=== PATIENT | female | born 1950 | race Caucasian/White ===

== ENCOUNTER 2017-11-12 05:18 | Inpatient (IN) | payer MEDICARE, OTHER ==
[2017-11-12] MEDS: MORPHINE SULFATE 2 MG/ML DISP.SYRIN. IV (06:28)
[2017-11-12 06:34] LABS: ADD MAN DIFF? NO
[2017-11-12 06:37] LABS: BASO % 1 % (0-3); EOS # 0.3 x10^3/uL (0.0-0.7); EOS % 5 % (0-3); HEMOGLOBIN 11.3 g/dL (12.0-15.5); LYMPH # 2.1 x10^3/uL (1.0-4.8); LYMPH % 38 % (24-48); MEAN CORPUSCULAR HEMOGLOBIN 29 pg (25-35); MEAN CORPUSCULAR HGB CONC 34 g/dL (31-37); MEAN CORPUSCULAR VOLUME 85 fL (79-100); MONO # 0.4 x10^3/uL (0.0-1.1); MONO % 8 % (0-9); NEUT # 2.8 x10^3uL (1.8-7.7); NEUT % 49 % (31-73); PLATELET COUNT 239 x10^3/uL (140-400); RED BLOOD COUNT 3.89 x10^6/uL (3.50-5.40); RED CELL DISTRIBUTION WIDTH 16.2 % (11.5-14.5); WHITE BLOOD COUNT 5.6 x10^3/uL (4.0-11.0)
[2017-11-12 06:50] LABS: ANION GAP 12 (6-14); BLOOD UREA NITROGEN 18 mg/dL (7-20); BUN/CREATININE RATIO 23 (6-20); CALCIUM 9.1 mg/dL (8.5-10.1); CARBON DIOXIDE 21 mmol/L (21-32); CHLORIDE 104 mmol/L (98-107); CREATININE 0.8 mg/dL (0.6-1.0); GFR 71.3; GLUCOSE 107 mg/dL (70-99); SODIUM 137 mmol/L (136-145)
[2017-11-12 06:55] LABS: ALBUMIN 3.5 g/dL (3.4-5.0); ALBUMIN/GLOBULIN RATIO 0.9 (1.0-1.7); ALK PHOS 115 U/L (46-116); ALT (SGPT) 21 U/L (14-59); AST (SGOT) 21 U/L (15-37); TOTAL BILIRUBIN 0.3 mg/dL (0.2-1.0); TOTAL PROTEIN 7.2 g/dL (6.4-8.2)
[2017-11-12 06:59] LABS: TROPONINI < 0.017 ng/mL (0.000-0.055)
[2017-11-12 07:57] LABS: INR 1.9 (0.8-1.1); PARTIAL THROMBOPLASTIN TIME 39 SEC (24-38); PROTHROMBIN TIME PATIENT 20.7 SEC (11.7-14.0)
[2017-11-12] MEDS ORDERED: fentaNYL PF VIAL 100 MCG/2 ML VIAL IV (08:00)
[2017-11-12 08:08] LABS: D-DIMER 0.28 ug/mlFEU (0.00-0.50)
[2017-11-12] MEDS: ASPIRIN CHEWABLE 81 MG TABLET. PO (08:19)
[2017-11-12] MEDS: diphenhydrAMINE 50 MG/ML VIAL IVP (08:19)
[2017-11-12] MEDS: ACETAMINOPHEN 500 MG TABLET PO (08:23)
[2017-11-12] MEDS ORDERED: ACETAMINOPHEN 325 MG TABLET. PO (12:00)
[2017-11-12 12:19] LABS: TROPONINI < 0.017 ng/mL (0.000-0.055)
[2017-11-12] MEDS ORDERED: NITROGLYCERIN SUBLINGUAL 0.4 MG BOTTLE OF 25. SL (14:00)
[2017-11-12] MEDS ORDERED: NON FORMULARY ITEM (Gabapentin 300 MG) PO (14:00)
[2017-11-12] MEDS ORDERED: NON FORMULARY ITEM (Cranberry Extract (Cranberry) 425 MG) PO (14:00)
[2017-11-12] MEDS ORDERED: IPRATRPIUM/ALBUTEROL 0.5/2.5MG 3 ML NEBU. NEB (14:00)
[2017-11-12] MEDS ORDERED: GABAPENTIN 100 MG CAPSULE. PO (14:00)
[2017-11-12] MEDS ORDERED: NON FORMULARY ITEM (Melatonin 5 MG) PO (14:00)
[2017-11-12] MEDS ORDERED: DICLOFENAC SODIUM 1% TOPICAL GEL 100GM TUBE. TP (14:00)
[2017-11-12 15:20] LABS: TROPONINI < 0.017 ng/mL (0.000-0.055)
[2017-11-12] MEDS ORDERED: SENNOSIDES 8.6 MG TABLET PO (15:30)
[2017-11-12] MEDS: traMADol 50 MG TABLET PO ×2 (15:36→21:45)
[2017-11-12] MEDS: CYCLOBENZAPRINE 10 MG TABLET. PO (15:37)
[2017-11-12] MEDS ORDERED: DEXTROSE 50% 25 GM / 50ML DISP.SYRIN. IV (16:00)
[2017-11-12] MEDS: INSULIN LISPRO 300 UNITS/3 ML INSULN.PEN. SQ (17:00)
[2017-11-12] MEDS: ACETAMINOPHEN 325 MG TABLET. PO (17:36)
[2017-11-12] MEDS: RIVAROXABAN 10 MG TABLET. PO (17:36)
[2017-11-12] MEDS: LACTOBACILLUS RHAMNOSUS GG 1 CAPSULE. PO (17:36)
[2017-11-12] MEDS: lamoTRIgine 100 MG TABLET. PO (17:36)
[2017-11-12] MEDS: FUROSEMIDE 40 MG TABLET. PO (17:36)
[2017-11-12] MEDS: POLYVINYL ALCOHOL 1.4% OPHTH SOLUTION 15ML BOTTLE. OU ×2 (17:37→21:46)
[2017-11-12] MEDS: METOPROLOL TART IMMED RELEASE 25 MG TABLET. PO (17:37)
[2017-11-12] MEDS: diphenhydrAMINE ORAL ELIXIR 12.5 MG/5 ML ML PO (18:19)
[2017-11-12 20:35] LABS: POC GLUCOSE 113 mg/dL (70-99)
[2017-11-12 20:59] LABS: POC GLUCOSE 96 mg/dL (70-99)
[2017-11-12] MEDS ORDERED: KETOTIFEN FUMARATE 0.025% OPHTH SOLUTION BOTTLE. OU (21:00)
[2017-11-12] MEDS: GABAPENTIN 300 MG CAPSULE. PO (21:46)
[2017-11-12] MEDS: CHOLESTYRAMINE/ASPARTAME 4 GM PACKET PO (21:46)
[2017-11-13] MEDS: diphenhydrAMINE ORAL ELIXIR 12.5 MG/5 ML ML PO ×3 (00:59→21:49)
[2017-11-13] MEDS: ACETAMINOPHEN 325 MG TABLET. PO ×4 (00:59→16:51)
[2017-11-13] MEDS: CYCLOBENZAPRINE 10 MG TABLET. PO ×2 (01:00→20:16)
[2017-11-13] MEDS: POLYVINYL ALCOHOL 1.4% OPHTH SOLUTION 15ML BOTTLE. OU ×6 (01:00→20:16)
[2017-11-13] MEDS: traMADol 50 MG TABLET PO ×5 (01:01→20:17)
[2017-11-13] MEDS: FUROSEMIDE 40 MG TABLET. PO ×2 (06:17→16:51)
[2017-11-13] MEDS: LEVOTHYROXINE 50 MCG TABLET PO (06:17)
[2017-11-13] MEDS: INSULIN LISPRO 300 UNITS/3 ML INSULN.PEN. SQ ×3 (08:00→16:45)
[2017-11-13 08:42] LABS: POC GLUCOSE 84 mg/dL (70-99)
[2017-11-13] MEDS: lamoTRIgine 100 MG TABLET. PO ×2 (09:38→20:16)
[2017-11-13] MEDS: LACTOBACILLUS RHAMNOSUS GG 1 CAPSULE. PO (09:38)
[2017-11-13] MEDS: POTASSIUM CHLORIDE 20 MEQ TABLET.ER. PO (09:38)
[2017-11-13] MEDS: PANTOPRAZOLE 40 MG TABLET.DR. PO (09:39)
[2017-11-13] MEDS: GABAPENTIN 100 MG CAPSULE. PO (09:39)
[2017-11-13] MEDS: METOPROLOL TART IMMED RELEASE 25 MG TABLET. PO (09:39)
[2017-11-13] MEDS: CHOLESTYRAMINE/ASPARTAME 4 GM PACKET PO ×2 (09:39→20:16)
[2017-11-13 11:28] LABS: POC GLUCOSE 104 mg/dL (70-99)
[2017-11-13] MEDS: ANTI-COAG MONITOR BY PHARMACY. MC (14:17)
[2017-11-13 16:40] LABS: POC GLUCOSE 78 mg/dL (70-99)
[2017-11-13] MEDS: RIVAROXABAN 10 MG TABLET. PO (16:51)
[2017-11-13] MEDS: GABAPENTIN 300 MG CAPSULE. PO (20:16)
[2017-11-13 20:27] LABS: POC GLUCOSE 105 mg/dL (70-99)
[2017-11-13] MEDS: LATANOPROST 0.005% OPHTH SOLUTION 2.5ML BOTTLE. OU (21:49)
[2017-11-13] MEDS: LORazepam 0.5 MG TABLET PO (21:49)
[2017-11-13] MEDS: ONDANSETRON ODT 4 MG TAB.RAPDIS. PO (22:01)
[2017-11-14 00:13] LABS: MRSA BY PCR Positive (Negative)
[2017-11-14] MEDS: POLYVINYL ALCOHOL 1.4% OPHTH SOLUTION 15ML BOTTLE. OU ×7 (02:42→23:59)
[2017-11-14] MEDS: ACETAMINOPHEN 325 MG TABLET. PO ×5 (02:42→23:55)
[2017-11-14 07:45] LABS: POC GLUCOSE 100 mg/dL (70-99)
[2017-11-14] MEDS: INSULIN LISPRO 300 UNITS/3 ML INSULN.PEN. SQ ×3 (08:00→16:09)
[2017-11-14] MEDS: GABAPENTIN 100 MG CAPSULE. PO ×2 (09:00→22:13)
[2017-11-14] MEDS: REGADENOSON 0.4 MG/5 ML DISP.SYRIN. IV (11:03)
[2017-11-14 13:47] LABS: POC GLUCOSE 124 mg/dL (70-99)
[2017-11-14] MEDS: CHOLESTYRAMINE/ASPARTAME 4 GM PACKET PO ×2 (13:55→22:13)
[2017-11-14] MEDS: POTASSIUM CHLORIDE 20 MEQ TABLET.ER. PO (13:56)
[2017-11-14] MEDS: LACTOBACILLUS RHAMNOSUS GG 1 CAPSULE. PO (13:57)
[2017-11-14] MEDS: LEVOTHYROXINE 50 MCG TABLET PO (13:57)
[2017-11-14] MEDS: METOPROLOL TART IMMED RELEASE 25 MG TABLET. PO (14:02)
[2017-11-14] MEDS: PANTOPRAZOLE 40 MG TABLET.DR. PO (14:03)
[2017-11-14] MEDS: FUROSEMIDE 40 MG TABLET. PO ×2 (14:03→16:10)
[2017-11-14] MEDS: lamoTRIgine 100 MG TABLET. PO ×2 (14:03→22:13)
[2017-11-14] MEDS: ANTI-COAG MONITOR BY PHARMACY. MC (14:24)
[2017-11-14 15:05] LABS: CREATINE KINASE 73 U/L (26-192)
[2017-11-14 16:10] LABS: POC GLUCOSE 120 mg/dL (70-99)
[2017-11-14 17:22] LABS: VITAMIN-B12 286 pg/mL (247-911)
[2017-11-14] MEDS: RIVAROXABAN 10 MG TABLET. PO (18:26)
[2017-11-14 20:35] LABS: POC GLUCOSE 92 mg/dL (70-99)
[2017-11-14] MEDS: TOPIRAMATE 25 MG TABLET. PO (22:13)
[2017-11-14] MEDS: LATANOPROST 0.005% OPHTH SOLUTION 2.5ML BOTTLE. OU (22:14)
[2017-11-14 22:16] LABS: C DIFF BY PCR Negative (Negative)
[2017-11-14] MEDS: GABAPENTIN 300 MG CAPSULE. PO (22:28)
[2017-11-14] MEDS: diphenhydrAMINE ORAL ELIXIR 12.5 MG/5 ML ML PO (23:55)
[2017-11-14] MEDS: traMADol 50 MG TABLET PO (23:58)
[2017-11-15] MEDS: POLYVINYL ALCOHOL 1.4% OPHTH SOLUTION 15ML BOTTLE. OU ×6 (04:00→23:55)
[2017-11-15] MEDS: FUROSEMIDE 40 MG TABLET. PO ×2 (06:38→17:45)
[2017-11-15] MEDS: ACETAMINOPHEN 325 MG TABLET. PO ×4 (06:38→23:40)
[2017-11-15] MEDS: LEVOTHYROXINE 50 MCG TABLET PO (06:38)
[2017-11-15] MEDS ORDERED: PROPOFOL 40 ML IV (06:56)
[2017-11-15] MEDS ORDERED: LIDOCAINE 2% PF Vial for OR 5 ML VIAL. (06:56)
[2017-11-15] MEDS: IV RINGERS,LACTATED 1000ML 1,000 ML IV (07:00)
[2017-11-15] MEDS ORDERED: PROCHLORPERAZINE 10 MG/2 ML VIAL. IV (07:00)
[2017-11-15] MEDS ORDERED: ONDANSETRON PF 4 MG/2 ML VIAL. IV (07:00)
[2017-11-15] MEDS ORDERED: LIDOCAINE 1% PF 2 ML VIAL. ID (07:00)
[2017-11-15] MEDS ORDERED: fentaNYL PF VIAL 100 MCG/2 ML VIAL IV ×2 (07:00)
[2017-11-15 07:59] LABS: POC GLUCOSE 102 mg/dL (70-99)
[2017-11-15] MEDS: INSULIN LISPRO 300 UNITS/3 ML INSULN.PEN. SQ ×3 (08:00→16:37)
[2017-11-15 08:52] LABS: HEMATOCRIT 34.6 % (36.0-47.0); HEMOGLOBIN 11.7 g/dL (12.0-15.5); MEAN CORPUSCULAR HEMOGLOBIN 29 pg (25-35); MEAN CORPUSCULAR HGB CONC 34 g/dL (31-37); MEAN CORPUSCULAR VOLUME 87 fL (79-100); PLATELET COUNT 221 x10^3/uL (140-400); RED BLOOD COUNT 3.98 x10^6/uL (3.50-5.40); RED CELL DISTRIBUTION WIDTH 15.6 % (11.5-14.5); WHITE BLOOD COUNT 5.5 x10^3/uL (4.0-11.0)
[2017-11-15 09:28] LABS: ALBUMIN 3.2 g/dL (3.4-5.0); ALBUMIN/GLOBULIN RATIO 0.9 (1.0-1.7); ALK PHOS 107 U/L (46-116); ALT (SGPT) 13 U/L (14-59); ANION GAP 11 (6-14); AST (SGOT) 34 U/L (15-37); BLOOD UREA NITROGEN 16 mg/dL (7-20); BUN/CREATININE RATIO 27 (6-20); CALCIUM 8.8 mg/dL (8.5-10.1); CARBON DIOXIDE 24 mmol/L (21-32); CHLORIDE 104 mmol/L (98-107); CREATININE 0.6 mg/dL (0.6-1.0); GFR 99.4; GLUCOSE 98 mg/dL (70-99); POTASSIUM 4.6 mmol/L (3.5-5.1); SODIUM 139 mmol/L (136-145); TOTAL BILIRUBIN 0.4 mg/dL (0.2-1.0); TOTAL PROTEIN 6.7 g/dL (6.4-8.2)
[2017-11-15] MEDS: CHOLESTYRAMINE/ASPARTAME 4 GM PACKET PO ×2 (13:39→21:32)
[2017-11-15] MEDS: POTASSIUM CHLORIDE 20 MEQ TABLET.ER. PO (13:41)
[2017-11-15] MEDS: METOPROLOL TART IMMED RELEASE 25 MG TABLET. PO (13:41)
[2017-11-15] MEDS: LACTOBACILLUS RHAMNOSUS GG 1 CAPSULE. PO (13:41)
[2017-11-15] MEDS: PANTOPRAZOLE 40 MG TABLET.DR. PO (13:41)
[2017-11-15] MEDS: lamoTRIgine 100 MG TABLET. PO ×2 (13:42→21:31)
[2017-11-15] MEDS: NYSTATIN TOPICAL POWDER 15GM BOTTLE. TP ×2 (13:42→21:33)
[2017-11-15] MEDS: GABAPENTIN 100 MG CAPSULE. PO (13:42)
[2017-11-15] MEDS: ONDANSETRON ODT 4 MG TAB.RAPDIS. PO (16:16)
[2017-11-15] MEDS: diphenhydrAMINE ORAL ELIXIR 12.5 MG/5 ML ML PO (16:29)
[2017-11-15 16:39] LABS: POC GLUCOSE 107 mg/dL (70-99)
[2017-11-15] MEDS: traMADol 50 MG TABLET PO ×2 (17:45→23:40)
[2017-11-15] MEDS: RIVAROXABAN 10 MG TABLET. PO (17:45)
[2017-11-15] MEDS: TOPIRAMATE 25 MG TABLET. PO (21:31)
[2017-11-15] MEDS: GABAPENTIN 300 MG CAPSULE. PO (21:31)
[2017-11-15] MEDS: LORazepam 0.5 MG TABLET PO (21:32)
[2017-11-15] MEDS: LATANOPROST 0.005% OPHTH SOLUTION 2.5ML BOTTLE. OU (21:33)
[2017-11-15 21:36] LABS: POC GLUCOSE 109 mg/dL (70-99)
[2017-11-16 01:35] LABS: POC GLUCOSE 85 mg/dL (70-99)
[2017-11-16] MEDS: POLYVINYL ALCOHOL 1.4% OPHTH SOLUTION 15ML BOTTLE. OU ×6 (04:00→20:05)
[2017-11-16] MEDS: traMADol 50 MG TABLET PO ×3 (06:08→23:53)
[2017-11-16] MEDS: FUROSEMIDE 40 MG TABLET. PO ×2 (06:08→16:35)
[2017-11-16] MEDS: ACETAMINOPHEN 325 MG TABLET. PO ×4 (06:08→23:53)
[2017-11-16] MEDS: LEVOTHYROXINE 50 MCG TABLET PO (06:10)
[2017-11-16] MEDS: IOHEXOL 300 MG/ML 100ML VIAL. IV (07:00)
[2017-11-16] MEDS ORDERED: CONTRAST GIVEN. MC (07:00)
[2017-11-16 07:26] LABS: BARBITURATES NEG (NEG); BENZODIAZEPINES NEG (NEG); CANNABINOIDS NEG (NEG); COCAINE NEG (NEG); METHADONE NEG (NEG); OPIATES NEG (NEG); PHENCYCLIDINE NEG (NEG)
[2017-11-16 07:28] LABS: AMPHETAMINE/METHAMPHETAMINE NEG (NEG); ETHANOL, URINE NEG (NEG)
[2017-11-16] MEDS: INSULIN LISPRO 300 UNITS/3 ML INSULN.PEN. SQ ×3 (08:00→16:43)
[2017-11-16 08:06] LABS: POC GLUCOSE 98 mg/dL (70-99)
[2017-11-16] MEDS: NYSTATIN TOPICAL POWDER 15GM BOTTLE. TP ×2 (08:45→20:05)
[2017-11-16] MEDS: lamoTRIgine 100 MG TABLET. PO ×2 (08:46→20:06)
[2017-11-16] MEDS: GABAPENTIN 100 MG CAPSULE. PO (08:46)
[2017-11-16] MEDS: PANTOPRAZOLE 40 MG TABLET.DR. PO (08:46)
[2017-11-16] MEDS: CHOLESTYRAMINE/ASPARTAME 4 GM PACKET PO ×2 (08:46→21:00)
[2017-11-16] MEDS: LACTOBACILLUS RHAMNOSUS GG 1 CAPSULE. PO (08:47)
[2017-11-16] MEDS: METOPROLOL TART IMMED RELEASE 25 MG TABLET. PO (08:48)
[2017-11-16] MEDS: POTASSIUM CHLORIDE 20 MEQ TABLET.ER. PO (08:49)
[2017-11-16 11:55] LABS: POC GLUCOSE 95 mg/dL (70-99)
[2017-11-16] MEDS: CALCIUM CARBONATE 500 MG TABLET PO (11:59)
[2017-11-16] MEDS: CHOLECALCIFEROL (VITAMIN D3) 5,000 UNIT CAPSULE PO (11:59)
[2017-11-16] MEDS: diphenhydrAMINE ORAL ELIXIR 12.5 MG/5 ML ML PO ×2 (12:03→20:06)
[2017-11-16] MEDS: ANTI-COAG MONITOR BY PHARMACY. MC (12:39)
[2017-11-16] MEDS: RIVAROXABAN 10 MG TABLET. PO (16:36)
[2017-11-16 16:58] LABS: POC GLUCOSE 74 mg/dL (70-99)
[2017-11-16] MEDS: TOPIRAMATE 25 MG TABLET. PO (20:06)
[2017-11-16] MEDS: CYCLOBENZAPRINE 10 MG TABLET. PO (20:06)
[2017-11-16] MEDS: LATANOPROST 0.005% OPHTH SOLUTION 2.5ML BOTTLE. OU (20:06)
[2017-11-16] MEDS: GABAPENTIN 300 MG CAPSULE. PO (20:06)
[2017-11-16] MEDS: LORazepam 0.5 MG TABLET PO (23:53)
[2017-11-17] MEDS: POLYVINYL ALCOHOL 1.4% OPHTH SOLUTION 15ML BOTTLE. OU ×3 (04:00→10:04)
[2017-11-17] MEDS: FUROSEMIDE 40 MG TABLET. PO (06:17)
[2017-11-17] MEDS: LEVOTHYROXINE 50 MCG TABLET PO (06:17)
[2017-11-17] MEDS: ACETAMINOPHEN 325 MG TABLET. PO ×2 (06:17→10:02)
[2017-11-17 07:42] LABS: POC GLUCOSE 95 mg/dL (70-99)
[2017-11-17] MEDS: INSULIN LISPRO 300 UNITS/3 ML INSULN.PEN. SQ (08:00)
[2017-11-17] MEDS: CHOLESTYRAMINE/ASPARTAME 4 GM PACKET PO (09:00)
[2017-11-17] MEDS: CHOLECALCIFEROL (VITAMIN D3) 5,000 UNIT CAPSULE PO (10:01)
[2017-11-17] MEDS: traMADol 50 MG TABLET PO (10:01)
[2017-11-17] MEDS: CYCLOBENZAPRINE 10 MG TABLET. PO (10:01)
[2017-11-17] MEDS: METOPROLOL TART IMMED RELEASE 25 MG TABLET. PO (10:02)
[2017-11-17] MEDS: LACTOBACILLUS RHAMNOSUS GG 1 CAPSULE. PO (10:02)
[2017-11-17] MEDS: CALCIUM CARBONATE 500 MG TABLET PO (10:02)
[2017-11-17] MEDS: GABAPENTIN 100 MG CAPSULE. PO (10:02)
[2017-11-17] MEDS: POTASSIUM CHLORIDE 20 MEQ TABLET.ER. PO (10:03)
[2017-11-17] MEDS: PANTOPRAZOLE 40 MG TABLET.DR. PO (10:03)
[2017-11-17] MEDS: NYSTATIN TOPICAL POWDER 15GM BOTTLE. TP (10:03)
[2017-11-17] MEDS: lamoTRIgine 100 MG TABLET. PO (10:03)
== END 2017-11-17 11:35 | DRG 313 ==
LOC: ER 05:18 → 6 SOUTH 08:05 → 5 SOUTH 09:54
DX: R07.89 Other chest pain (principal); I50.32 Chronic diastolic (congestive) heart failure; J96.10 Chronic respiratory failure, unspecified whether with hypoxia or hypercapnia; E66.9 Obesity, unspecified; E89.0 Postprocedural hypothyroidism; F25.9 Schizoaffective disorder, unspecified; F31.9 Bipolar disorder, unspecified; F60.9 Personality disorder, unspecified; G24.01 Drug induced subacute dyskinesia; G43.909 Migraine, unspecified, not intractable, without status migrainosus; G89.4 Chronic pain syndrome; H54.7 Unspecified visual loss; I11.0 Hypertensive heart disease with heart failure; I25.10 Atherosclerotic heart disease of native coronary artery without angina pectoris; I48.0 Paroxysmal atrial fibrillation; J44.9 Chronic obstructive pulmonary disease, unspecified; K21.0 Gastro-esophageal reflux disease with esophagitis; K44.9 Diaphragmatic hernia without obstruction or gangrene; K52.9 Noninfective gastroenteritis and colitis, unspecified; M79.7 Fibromyalgia; N20.0 Calculus of kidney; N21.0 Calculus in bladder; R13.10 Dysphagia, unspecified; I48.2 Chronic atrial fibrillation; F32.9 Major depressive disorder, single episode, unspecified; F41.9 Anxiety disorder, unspecified; E11.43 Type 2 diabetes mellitus with diabetic autonomic (poly)neuropathy; M19.90 Unspecified osteoarthritis, unspecified site; K31.84 Gastroparesis; Z79.4 Long term (current) use of insulin; Z96.611 Presence of right artificial shoulder joint; Z96.612 Presence of left artificial shoulder joint; Z96.653 Presence of artificial knee joint, bilateral; Z88.6 Allergy status to analgesic agent; Z88.1 Allergy status to other antibiotic agents; Z88.2 Allergy status to sulfonamides; Z88.8 Allergy status to other drugs, medicaments and biological substances; Z79.01 Long term (current) use of anticoagulants; Z82.49 Family history of ischemic heart disease and other diseases of the circulatory system; Z85.51 Personal history of malignant neoplasm of bladder; Z86.718 Personal history of other venous thrombosis and embolism; Z87.442 Personal history of urinary calculi; Z90.49 Acquired absence of other specified parts of digestive tract; Z90.6 Acquired absence of other parts of urinary tract; Z90.710 Acquired absence of both cervix and uterus; Z93.6 Other artificial openings of urinary tract status; Z68.34 Body mass index [BMI] 34.0-34.9, adult
CPT/HCPCS: 36415; 70450; 71045; 74018; 74178; 78452; 80053; 80307; 82306; 82550; 82607; 82962; 84484; 85025; 85027; 85379; 85610; 85730; 87040; 87324; 87641; 92526-GN; 92610-GN; 93005; 93017; 93306; 95816; 96374; 96375; 96376; 99285; 99285-25; A9500; J1200; J1815; J2001; J2270; J2704; J2785; Q0162; Q9967

== ENCOUNTER 2017-11-24 17:43 | Emergency (ER) | payer MEDICARE ==
[2017-11-24] MEDS: traMADol 50 MG TABLET PO (18:45)
[2017-11-24 19:35] LABS: BILIRUBIN,URINE NEGATIVE (NEG); CLARITY,URINE CLEAR; COLOR,URINE YELLOW; GLUCOSE,URINE NEGATIVE (NEG); NITRITE,URINE POSITIVE (NEG); PROTEIN,URINE NEGATIVE (NEG-TRACE); UROBILINOGEN,URINE 0.2 mg/dL (0.2 mg/dL)
[2017-11-24 19:54] LABS: BACTERIA,URINE MODERATE /HPF (0-FEW); HYALINE CASTS, URINE OCCASIONAL /HPF; SQUAMOUS EPITHELIAL CELL,UR FEW /LPF
== END 2017-11-24 20:59 | disposition home or self-care (01) ==
LOC: ER 17:43
DX: M54.5 Low back pain (principal); F41.9 Anxiety disorder, unspecified; M19.90 Unspecified osteoarthritis, unspecified site; J45.909 Unspecified asthma, uncomplicated; I11.0 Hypertensive heart disease with heart failure; I50.9 Heart failure, unspecified; F31.9 Bipolar disorder, unspecified; E11.9 Type 2 diabetes mellitus without complications; K21.9 Gastro-esophageal reflux disease without esophagitis; Z86.718 Personal history of other venous thrombosis and embolism; Z88.2 Allergy status to sulfonamides; Z87.440 Personal history of urinary (tract) infections; Z88.1 Allergy status to other antibiotic agents; Z91.041 Radiographic dye allergy status; Z88.5 Allergy status to narcotic agent
CPT/HCPCS: 81001; 87086; 99284

== ENCOUNTER 2017-12-03 00:01 | Emergency (ER) | payer MEDICARE ==
[2017-12-02] MEDS: DICYCLOMINE 20 MG/2 ML AMPUL. IM (23:45)
[2017-12-02] MEDS: IV NORMAL SALINE 1000ML BAG 1,000 ML IV (23:45)
[2017-12-02] MEDS: ONDANSETRON PF 4 MG/2 ML VIAL. IV (23:45)
[2017-12-03 00:30] LABS: ADD MAN DIFF? NO
[2017-12-03 00:36] LABS: BASO % 1 % (0-3); EOS # 0.5 x10^3/uL (0.0-0.7); EOS % 7 % (0-3); HEMATOCRIT 34.2 % (36.0-47.0); HEMOGLOBIN 11.5 g/dL (12.0-15.5); LYMPH # 2.6 x10^3/uL (1.0-4.8); LYMPH % 39 % (24-48); MEAN CORPUSCULAR HEMOGLOBIN 29 pg (25-35); MEAN CORPUSCULAR HGB CONC 34 g/dL (31-37); MEAN CORPUSCULAR VOLUME 86 fL (79-100); MONO # 0.7 x10^3/uL (0.0-1.1); MONO % 11 % (0-9); NEUT # 2.8 x10^3uL (1.8-7.7); NEUT % 42 % (31-73); PLATELET COUNT 241 x10^3/uL (140-400); RED BLOOD COUNT 3.99 x10^6/uL (3.50-5.40); RED CELL DISTRIBUTION WIDTH 14.4 % (11.5-14.5); WHITE BLOOD COUNT 6.6 x10^3/uL (4.0-11.0)
[2017-12-03 00:50] LABS: ANION GAP 13 (6-14); BLOOD UREA NITROGEN 19 mg/dL (7-20); BUN/CREATININE RATIO 16 (6-20); CALCIUM 8.5 mg/dL (8.5-10.1); CARBON DIOXIDE 24 mmol/L (21-32); CHLORIDE 106 mmol/L (98-107); CREATININE 1.2 mg/dL (0.6-1.0); GFR 44.7; GLUCOSE 108 mg/dL (70-99); POTASSIUM 3.2 mmol/L (3.5-5.1); SODIUM 143 mmol/L (136-145)
[2017-12-03 00:57] LABS: ALBUMIN 3.4 g/dL (3.4-5.0); ALBUMIN/GLOBULIN RATIO 0.9 (1.0-1.7); ALK PHOS 104 U/L (46-116); ALT (SGPT) 16 U/L (14-59); AST (SGOT) 14 U/L (15-37); TOTAL BILIRUBIN 0.2 mg/dL (0.2-1.0)
[2017-12-03] MEDS: DICYCLOMINE HCL 10 MG CAPSULE PO (01:37)
[2017-12-03] MEDS: ONDANSETRON ODT 4 MG TAB.RAPDIS. PO (01:37)
[2017-12-03] MEDS: MECLIZINE HCL 12.5 MG TABLET. PO (01:37)
== END 2017-12-03 03:51 | disposition home or self-care (01) ==
LOC: ER 00:01
DX: R42 Dizziness and giddiness (principal); R11.2 Nausea with vomiting, unspecified; R19.7 Diarrhea, unspecified; F31.9 Bipolar disorder, unspecified; I11.0 Hypertensive heart disease with heart failure; I50.9 Heart failure, unspecified; K21.9 Gastro-esophageal reflux disease without esophagitis; E11.9 Type 2 diabetes mellitus without complications; Z86.718 Personal history of other venous thrombosis and embolism; Z88.2 Allergy status to sulfonamides; Z88.1 Allergy status to other antibiotic agents; Z88.5 Allergy status to narcotic agent; Z88.8 Allergy status to other drugs, medicaments and biological substances; Z88.6 Allergy status to analgesic agent; Z91.041 Radiographic dye allergy status
CPT/HCPCS: 36415; 80053; 85025; 99284; J8597; Q0162

== ENCOUNTER 2018-03-05 15:20 | Inpatient (IN) | payer MEDICARE, OTHER ==
[~2018-03-05] VITALS: Ht 170.2 cm; Wt 102.1 kg
[~2018-03-05 15:20] MED LIST: ACET325T21 PO; CHOL4POW PO; CRAN425C3 PO; CYCL10TA2 PO; DICL100G18 TP; FURO40TA4 PO; GABA-585 PO; GABA-586 PO; HYDR453. TP; INSU100V31 SQ; IPRA3AMP29 NEB; KETO5DRO4 EACHEYE; LACT1CAP24 PO; LAMO100T PO; LATA2.5D3 OU; LEVO50TA5 PO; LORA0.5T PO; MECL25TA3 PO; MELA3TAB2 PO; METO25TA4 PO; MICO130A9 TP; NITR0.4T22 SL; ONDA4TAB10 SL; PANT20TA2 PO; POLY15DR27 OU; POTA20TA82 PO; RIVA20TA2 PO; SENN8.6T99 PO; TRAM50TA PO
[2018-03-05] MEDS ORDERED: IV DEXTROSE 5 %-0.45 % NACL 1,000 ML IV SCH (18:00)
[2018-03-05] MEDS ORDERED: hydrocortisone cream TP (18:50)
[2018-03-05] MEDS ORDERED: HYDR50TA PO (18:50)
[2018-03-05] MEDS ORDERED: LACT1CAP6 PO (18:50)
[2018-03-05] MEDS ORDERED: HYDR-2758 PO (18:50)
[2018-03-05 18:56] LABS: BASO % 1 % (0-3); EOS # 0.3 x10^3/uL (0.0-0.7); EOS % 6 % (0-3); HEMATOCRIT 37.4 % (36.0-47.0); HEMOGLOBIN 12.8 g/dL (12.0-15.5); LYMPH # 1.8 x10^3/uL (1.0-4.8); LYMPH % 40 % (24-48); MEAN CORPUSCULAR HEMOGLOBIN 30 pg (25-35); MEAN CORPUSCULAR HGB CONC 34 g/dL (31-37); MEAN CORPUSCULAR VOLUME 87 fL (79-100); MONO # 0.4 x10^3/uL (0.0-1.1); MONO % 9 % (0-9); NEUT # 2.1 x10^3uL (1.8-7.7); NEUT % 45 % (31-73); PLATELET COUNT 193 x10^3/uL (140-400); RED CELL DISTRIBUTION WIDTH 15.4 % (11.5-14.5); WHITE BLOOD COUNT 4.6 x10^3/uL (4.0-11.0)
[2018-03-05 19:00] VITALS: BP 145/67
[2018-03-05 19:08] LABS: ALBUMIN 3.6 g/dL (3.4-5.0); ALBUMIN/GLOBULIN RATIO 0.9 (1.0-1.7); CALCIUM 8.6 mg/dL (8.5-10.1); CREATININE 0.8 mg/dL (0.6-1.0); GFR 71.3; POTASSIUM 3.3 mmol/L (3.5-5.1); TOTAL BILIRUBIN 0.2 mg/dL (0.2-1.0); TOTAL PROTEIN 7.5 g/dL (6.4-8.2)
[2018-03-05] MEDS ORDERED: TOPI25TA52 PO (19:59)
[2018-03-05] MEDS ORDERED: WITC1MED RC (19:59)
[2018-03-05] MEDS ORDERED: POTA20TA82 PO (19:59)
[2018-03-05] MEDS ORDERED: RISP1TAB43 PO (19:59)
[2018-03-05] MEDS ORDERED: LOPE2CAP PO (19:59)
[2018-03-05] MEDS ORDERED: OXCA300T19 PO (19:59)
[2018-03-05] MEDS ORDERED: TRAZ150T49 PO ×2 (19:59)
[2018-03-05] MEDS ORDERED: MENT118G TP (19:59)
[2018-03-05] MEDS ORDERED: DEXT15DR5 EACHEYE (19:59)
[2018-03-05] MEDS ORDERED: NON FORMULARY ITEM (Melatonin 5 MG) PO PRN (20:15)
[2018-03-05] MEDS ORDERED: NITROGLYCERIN SUBLINGUAL 0.4 MG BOTTLE OF 25. SL PRN (20:15)
[2018-03-05] MEDS ORDERED: ONDANSETRON ODT 4 MG TAB.RAPDIS. PO PRN (20:15)
[2018-03-05] MEDS ORDERED: IPRATRPIUM/ALBUTEROL 0.5/2.5MG 3 ML NEBU. NEB PRN (20:15)
[2018-03-05] MEDS ORDERED: DEXTRAN EACHEYE PRN (20:15)
[2018-03-05] MEDS ORDERED: HYPROMELLOSE EACHEYE PRN (20:15)
[2018-03-05] MEDS: HYDROCORTISONE 1% TOPICAL CREAM 30GM TUBE. TP SCH ×2 (20:30→21:00)
[2018-03-05] MEDS: hydrOXYzine PAMOATE 25 MG CAPSULE PO PRN (20:52)
[2018-03-05] MEDS: LACTOBACILLUS RHAMNOSUS GG 1 CAPSULE. PO SCH (20:53)
[2018-03-05] MEDS: VANCOMYCIN 125 MG/2.5 ML ORAL SOLUTION. PO SCH (20:54)
[2018-03-05] MEDS: HYDROcodone/APAP 5/325MG 1 TAB TABLET PO PRN (20:55)
[2018-03-05] MEDS: CHOLESTYRAMINE/ASPARTAME 4 GM PACKET PO SCH (21:00)
[2018-03-05] MEDS ORDERED: PHENYLEPH/MINERAL OIL/PETROLAT RECTAL OINTMENT 28GM TUBE. RC PRN (21:00)
[2018-03-05] MEDS ORDERED: METHYL SALICYLATE/MENTHOL TOPICAL OINTMENT 29GM TUBE. TP PRN (21:00)
[2018-03-05] MEDS ORDERED: NON FORMULARY ITEM (Cranberry Extract (Cranberry) 425 MG) PO SCH (21:00)
[2018-03-05] MEDS ORDERED: LOPERAMIDE 2 MG CAPSULE PO PRN (21:00)
[2018-03-05] MEDS ORDERED: GABAPENTIN 300 MG CAPSULE. PO SCH (21:00)
[2018-03-05] MEDS: KETOTIFEN FUMARATE 0.025% OPHTH SOLUTION BOTTLE. OU SCH (21:00)
[2018-03-05] MEDS ORDERED: traZODone 50 MG TABLET. PO PRN (21:15)
[2018-03-05] MEDS: POTASSIUM CL 20MEQ D5-0.45NACL 1,000 ML IV SCH (22:22)
[2018-03-05] MEDS: POLYVINYL ALCOHOL 1.4% OPHTH SOLUTION 15ML BOTTLE. OU SCH (22:25)
[2018-03-05] MEDS: traZODone 50 MG TABLET. PO SCH (22:26)
[2018-03-05] MEDS: RIVAROXABAN 10 MG TABLET. PO SCH (22:26)
[2018-03-05] MEDS: GABAPENTIN 300 MG CAPSULE. PO SCH (22:26)
[2018-03-05] MEDS: risperiDONE 1 MG TABLET. PO SCH (22:27)
[2018-03-05] MEDS: lamoTRIgine 100 MG TABLET. PO SCH (22:27)
[2018-03-05] MEDS: TOPIRAMATE 25 MG TABLET. PO SCH (22:27)
[2018-03-05] MEDS: OXcarbazepine 300 MG TABLET PO SCH (22:27)
[2018-03-05] MEDS: LATANOPROST 0.005% OPHTH SOLUTION 2.5ML BOTTLE. OU SCH (22:28)
[2018-03-05 23:00] VITALS: BP 128/69
[2018-03-05] MEDS: CYCLOBENZAPRINE 10 MG TABLET. PO PRN (23:06)
[2018-03-06] MEDS ORDERED: ACETAMINOPHEN 325 MG TABLET. PO SCH
[2018-03-06] MEDS ORDERED: C.DIFF MED SCREEN BY RX. MC ONE (02:00)
[2018-03-06] MEDS: HYDROcodone/APAP 5/325MG 1 TAB TABLET PO PRN ×2 (02:34→13:08)
[2018-03-06] MEDS: DICLOFENAC SODIUM 1% TOPICAL GEL 100GM TUBE. TP PRN ×2 (02:34→22:16)
[2018-03-06 03:00] VITALS: BP 121/65
[2018-03-06] MEDS: POTASSIUM CL 20MEQ D5-0.45NACL 1,000 ML IV SCH ×3 (05:00→21:00)
[2018-03-06] MEDS: LEVOTHYROXINE 50 MCG TABLET PO SCH (06:11)
[2018-03-06 07:00] VITALS: BP 128/63
[2018-03-06] MEDS ORDERED: PANTOPRAZOLE 40 MG TABLET.DR. PO SCH (07:30)
[2018-03-06] MEDS: HYDROCORTISONE 1% TOPICAL CREAM 30GM TUBE. TP SCH ×2 (09:00→22:16)
[2018-03-06] MEDS: MICONAZOLE NITRATE 2% TOPICAL CREAM 28GM TUBE. TP SCH ×2 (09:00→21:00)
[2018-03-06] MEDS: VANCOMYCIN 125 MG/2.5 ML ORAL SOLUTION. PO SCH ×4 (09:17→22:17)
[2018-03-06] MEDS: ACETAMINOPHEN 325 MG TABLET. PO PRN ×2 (09:17→17:30)
[2018-03-06] MEDS: POTASSIUM CHLORIDE 20 MEQ TABLET.ER. PO SCH (09:18)
[2018-03-06] MEDS: CYCLOBENZAPRINE 10 MG TABLET. PO PRN ×3 (09:18→22:23)
[2018-03-06] MEDS: GABAPENTIN 100 MG CAPSULE. PO SCH (09:18)
[2018-03-06] MEDS: CHOLESTYRAMINE/ASPARTAME 4 GM PACKET PO SCH ×2 (09:19→21:00)
[2018-03-06] MEDS: lamoTRIgine 100 MG TABLET. PO SCH ×2 (09:19→22:15)
[2018-03-06] MEDS: METOPROLOL TART IMMED RELEASE 25 MG TABLET. PO SCH (09:19)
[2018-03-06] MEDS: OXcarbazepine 300 MG TABLET PO SCH ×2 (09:19→22:13)
[2018-03-06] MEDS: risperiDONE 1 MG TABLET. PO SCH ×2 (09:19→22:15)
[2018-03-06] MEDS: LACTOBACILLUS RHAMNOSUS GG 1 CAPSULE. PO SCH ×2 (09:19→22:14)
--- NOTE | 2018-03-06 10:19 | HP ---
ADMIT DATE: 03/05/2018 HISTORY OF PRESENT ILLNESS: The patient is a 67-year-old female patient, a resident at [facility] in [place], whom I have seen yesterday at the nursing staff request as she apparently has had recurrent bouts of diarrhea over the weekend. She stated that she has almost 20 episodes of loose watery stool, and we did actually send her stool for C. diff and also for culture and sensitivity. Her stool for C. diff was positive for C. diff toxin, stool was also cultured, was positive for vancomycin resistant. DICTATION ENDS HERE. JOVANNA RAE MD DR: VERNELL/christina JOB#: [id number] / [id number]
--- NOTE | 2018-03-06 10:49 | HP ---
ADMIT DATE: 03/05/2018 HISTORY OF PRESENT ILLNESS: The patient is a 67-year-old female patient, a resident at [facility] in [place], whom I have seen yesterday at the nursing staff request. She apparently has had recurrent bouts of diarrhea with loose watery bowel movement. Her stool was sent for culture and sensitivity and also for C. diff toxins that were positive. Her stool was negative for salmonella, Shigella, but VRE was also isolated from her stool culture. Given that she was extremely weak, dehydrated and dizzy, I admitted her directly to [facility] for rehydration and started her on oral vancomycin. She was on Flagyl and fluconazole for vulvovaginal candidiasis and possible bacterial vaginosis; however, I discontinued that. She is known to have had C. diff colitis before and she did receive antibiotic within the last 2 months as she was admitted to [facility] and treated for UTI. PAST MEDICAL HISTORY: Significant for bronchial asthma, history of MRSA endocarditis, C. diff colitis, bladder dysfunction secondary to bladder cancer status post urostomy, hyperlipidemia, osteoarthritis, osteoporosis, type 2 diabetes, hepatitis C, morbid obesity, hypothyroidism, rheumatoid arthritis, personality disorder, anxiety, depression, chronic pain syndrome, fibromyalgia, and DVT on Xarelto. PAST SURGICAL HISTORY: Significant for appendectomy, cholecystectomy, total abdominal hysterectomy, bilateral salpingo-oophorectomy, rotator cuff tear, Port-A-Cath placement and removal, right shoulder replacement and urostomy. FAMILY HISTORY: Noncontributory. SOCIAL HISTORY: Single. She does not smoke, drink alcohol or use recreational drugs. She lived in [facility] for 7 years and has been at [facility] for the last year. ALLERGIES: She is allergic to MORPHINE, PENICILLIN, SULFA, DILAUDID, ZYPREXA, MINOCYCLINE, MOXIFLOXACIN, METOCLOPRAMIDE, DULOXETINE, CEPHALEXIN, BUTORPHANOL. MEDICATIONS: She is currently on following medications: She is on artificial tears solution 1.4%, 2 drops to both eyes at bedtime. She is on artificial tears every 4 hours, Biofreeze gel 4% applied topically to areas of request every 6 hours. She is on cholestyramine 4 grams 1 packet twice a day. She is on cyclobenzaprine 10 mg q.8 hourly; diclofenac sodium gel 1% applied topically as needed; DuoNeb 0.5/2.5 mg, 3 mL by nebulizer 4 times a day. She was on Flagyl 250 mg 3 times a day, fluconazole 100 mg once a day, furosemide 40 mg once a day, gabapentin 100 mg 1 time a day. She is on gabapentin 300 mg by mouth at bedtime. She is on hydrocodone/APAP 5/325 one tablet every 4 hours. She is on hydrocortisone cream 1% applied to facial rash, hydroxyzine 50 mg 1 tablet by mouth every 12 hours. Ketotifen fumarate solution 1 drop to both eyes 3 times a day, lactobacillus capsules give 1 capsule by mouth twice a day. She is on lamotrigine 100 mg by mouth twice a day. She is on latanoprost solution 0.005% one drop to both eyes at bedtime. She is on levothyroxine sodium 50 mcg once a day. She is on lorazepam 0.5 mg by mouth 4 times daily as needed. She is on magnesium hydroxide or milk of magnesia 30 mL p.o. daily p.r.n.; melatonin 3 mg, she takes 6 mg at bedtime; metoprolol tartrate 12.5 mg twice a day; miconazole nitrate powder 2% applied to groin topically every day; nitroglycerin 0.4 mg sublingually as needed. She is on Protonix 40 mg once a day. She is on potassium chloride 20 mEq once a day. She is on Preparation-H cream topically every 4 hours, risperidone 1 mg twice a day. She is on senna 1 tablet by mouth once a day, Topamax 25 mg daily, trazodone 100 mg once a day at bedtime. She is on rivaroxaban 20 mg once a day, Zofran 4 mg every 4 hours as needed for nausea and vomiting. REVIEW OF SYSTEMS: As per history of present illness. PHYSICAL EXAMINATION: GENERAL: On arrival to the hospital yesterday, she looked pale, but no jaundice, cyanosis, or thyromegaly. No jugular venous distension. No lower limb edema. VITAL SIGNS: Her heart rate was 73, blood pressure 145/67, temperature was 98.7, respiratory rate was 17 and oxygen saturation was 100%. HEAD, EYES, EARS, NOSE AND THROAT: Showed normocephalic, atraumatic. NECK: Supple. HEART: Showed normal first and second sounds. No gallop, rub or murmur. CHEST: Clear to auscultation. No crepitation or rhonchi. ABDOMEN: Distended, soft, nontender. No guarding or rigidity. No organomegaly. All hernial orifices intact. Bowel sounds normal. NEUROLOGIC: She is awake, alert, responding appropriately. All her cranial nerves intact. She moves her upper extremities to much good extent than lower extremities. She is mostly bedbound, chair bound. LABORATORY DATA: Her lab work on arrival showed a serum sodium 140, potassium 3.3, chloride 104, bicarbonate 27, anion gap of 9, BUN 30, creatinine 0.8, estimated GFR was 71 mL per minute. Her glucose was 114, calcium was 8.6. Total bilirubin, AST, ALT were normal. Alkaline phosphatase slightly elevated. Total protein was 7.5, albumin was 3.5. Her white cell count was 4600; hemoglobin 12.8; hematocrit 37.4; MCV 87 and platelet count of 193,000. IMPRESSION AND PLAN: In summary, this is a 67-year-old female patient who was admitted with recurrent bouts of diarrhea, dehydration. She was very weak and dizzy and her stool was positive for Clostridium difficile toxins. We will start her on IV fluid in the form of D5 half normal with 20 mEq of potassium chloride. Continue with oral vancomycin 125 mg 4 times a day as well as lactobacillus acidophilus 1 capsule twice a day. I held her Lasix as well as Flagyl and fluconazole. We will monitor her lab work and replenish her potassium as needed. I did consult the Infectious Disease as I was not sure what to make of the lab results and also she has VRE in the stool. JOVANNA RAE MD DR: VERNELL/christina JOB#: [id number] / [id number]
[2018-03-06] MEDS: KETOTIFEN FUMARATE 0.025% OPHTH SOLUTION BOTTLE. OU SCH ×2 (11:00→22:13)
[2018-03-06 11:38] VITALS: BP 95/56
--- NOTE | 2018-03-06 12:39 | PDOC ---
Infectious Disease Note Vital Sign Vital Signs Vital Signs Date Time Temp Pulse Resp B/P (MAP) Pulse Ox O2 Delivery O2 Flow Rate FiO2 03/06/18 11:38 95/56 (69) 03/06/18 09:19 61 03/06/18 07:00 97.9 17 90 Room Air 97.9 Labs Lab Laboratory Tests Test 03/05/18 17:45 White Blood Count 4.6 x10^3/uL (4.0-11.0) Red Blood Count 4.30 x10^6/uL (3.50-5.40) Hemoglobin 12.8 g/dL (12.0-15.5) Hematocrit 37.4 % (36.0-47.0) Mean Corpuscular Volume 87 fL (79-100) Mean Corpuscular Hemoglobin 30 pg (25-35) Mean Corpuscular Hemoglobin Concent 34 g/dL (31-37) Red Cell Distribution Width 15.4 % (11.5-14.5) Platelet Count 193 x10^3/uL (140-400) Neutrophils (%) (Auto) 45 % (31-73) Lymphocytes (%) (Auto) 40 % (24-48) Monocytes (%) (Auto) 9 % (0-9) Eosinophils (%) (Auto) 6 % (0-3) Basophils (%) (Auto) 1 % (0-3) Neutrophils # (Auto) 2.1 x10^3uL (1.8-7.7) Lymphocytes # (Auto) 1.8 x10^3/uL (1.0-4.8) Monocytes # (Auto) 0.4 x10^3/uL (0.0-1.1) Eosinophils # (Auto) 0.3 x10^3/uL (0.0-0.7) Basophils # (Auto) 0.0 x10^3/uL (0.0-0.2) Sodium Level 140 mmol/L (136-145) Potassium Level 3.3 mmol/L (3.5-5.1) Chloride Level 104 mmol/L (98-107) Carbon Dioxide Level 27 mmol/L (21-32) Anion Gap 9 (6-14) Blood Urea Nitrogen 20 mg/dL (7-20) Creatinine 0.8 mg/dL (0.6-1.0) Estimated GFR (Cockcroft-Gault) 71.3 BUN/Creatinine Ratio 25 (6-20) Glucose Level 114 mg/dL (70-99) Calcium Level 8.6 mg/dL (8.5-10.1) Total Bilirubin 0.2 mg/dL (0.2-1.0) Aspartate Amino Transf (AST/SGOT) 22 U/L (15-37) Alanine Aminotransferase (ALT/SGPT) 21 U/L (14-59) Alkaline Phosphatase 149 U/L (46-116) Total Protein 7.5 g/dL (6.4-8.2) Albumin 3.6 g/dL (3.4-5.0) Albumin/Globulin Ratio 0.9 (1.0-1.7) Objective Assessment loose stool Subjective chills VRE - stool - colonization Abx allergies - sulfa/cephalexin/minocycline/moxiflox Plan Plan of Care Cont po Vanc f/u c-diff - if neg may need GI eval Hold Immodium until C-diff back [facility] notes reviewed Thank you # [id number] HAL JOHNSON MD Mar 06, 2018 12:39
[2018-03-06] MEDS: LORazepam 0.5 MG TABLET PO PRN ×2 (13:07→20:08)
[2018-03-06 15:00] VITALS: BP 124/73
--- NOTE | 2018-03-06 18:13 | PN ---
DATE: 03/06/2018 SUBJECTIVE: The patient is resting slightly propped up in bed, in no apparent distress. She continued to complain of abdominal pain, recurrent bouts of loose bowel movement. Her stool came back positive for C. diff and we did start her on oral vancomycin 125 mg 4 times a day as well as IV fluid in the form of D5 half normal with 20 mEq potassium chloride as her potassium was low at 3.3. OBJECTIVE: GENERAL: On examining her this morning, she looked well and was clearly in no apparent respiratory distress. No pallor, jaundice, cyanosis, or thyromegaly. No jugular venous distension. No limb edema. VITAL SIGNS: Her heart rate was 61, blood pressure was 128/63, temperature was 97.9, respiratory rate was 17 and oxygen saturation was 90%. HEAD, EYES, EARS, NOSE AND THROAT: Normocephalic, atraumatic. NECK: Supple. HEART: Showed normal first and second heart sounds. No gallop, rub or murmur. CHEST: Clear to auscultation. No crepitation or rhonchi. ABDOMEN: Distended, soft, nontender. No guarding or rigidity. No organomegaly. Hernial orifice intact. Bowel sounds normal. NEUROLOGIC: She is awake, alert, responding appropriately. All cranial nerves intact. She moves upper extremities to much good extent than lower extremities. She is mostly bed bound, wheelchair bound. Her intake and output are incompletely recorded. LABORATORY DATA: Still pending at the time of this dictation. ASSESSMENT: Clostridium difficile colitis for which she is on IV fluid and oral vancomycin as well as Lactobacillus acidophilus. I did hold her Lasix. She was very dehydrated and dizzy and lightheaded. She has a multitude of medical problems including previous history of Clostridium difficile colitis, bronchial asthma, gastroesophageal reflux disease, hypothyroidism, anxiety and depression, hypertension, fibromyalgia, osteoarthritis and personality disorder. She has also history of bladder cancer, status post radical cystectomy and urostomy, chronic atrial fibrillation/flutter for which she is on metoprolol to slow the heart rate and Xarelto for stroke prevention. She has also had history of staghorn calculi. PLAN: To continue with oral vancomycin. Continue to replenish her electrolytes and IV fluid. She has been complaining of severe pain in her right joint. I will probably consult the orthopedic surgeon to inject her joint once her infection settles down. JOVANNA RAE MD DR: VERNELL/christina JOB#: [id number] / [id number]
[2018-03-06 19:00] VITALS: BP 132/89
[2018-03-06] MEDS: LATANOPROST 0.005% OPHTH SOLUTION 2.5ML BOTTLE. OU SCH (22:12)
[2018-03-06] MEDS: POLYVINYL ALCOHOL 1.4% OPHTH SOLUTION 15ML BOTTLE. OU SCH (22:12)
[2018-03-06] MEDS: RIVAROXABAN 10 MG TABLET. PO SCH (22:14)
[2018-03-06] MEDS: traZODone 50 MG TABLET. PO SCH (22:14)
[2018-03-06] MEDS: FAMOTIDINE 20 MG TABLET. PO SCH (22:15)
[2018-03-06] MEDS: TOPIRAMATE 25 MG TABLET. PO SCH (22:15)
[2018-03-06] MEDS: GABAPENTIN 300 MG CAPSULE. PO SCH (22:23)
[2018-03-06 23:00] VITALS: BP 149/69
[2018-03-07] MEDS: HYDROcodone/APAP 5/325MG 1 TAB TABLET PO PRN ×4 (00:03→20:04)
--- NOTE | 2018-03-07 02:05 | CONS ---
DATE OF CONSULTATION: 03/06/2018 ROOM: 534. REQUESTING PHYSICIAN: Dr. Ramirez. REASON FOR CONSULTATION: Questionable C. diff, positive VRE in the stool. HISTORY OF PRESENT ILLNESS: The patient is a 67-year-old female who [facility] She has a history of urostomy. She had it for over 30 years, had a questionable history of bladder cancer. She also has a history of C. diff. She states a month or so ago, she began to have loose stools. She thought she has some food poisoning, but was subsequently told she was not. She denies receiving any outside food in any time. She has now been having complications with recurrent diarrhea and loose watery bowel movements again. She did have stool studies acquired on the that showed no Salmonella or Shigella isolated. C. diff was collected on the . C. diff toxin gene was positive, but the C. diff/epi was presumptive negative. Stool culture is positive for VRE. She became dizzy, had some hypotension and subjective fevers and was admitted to [facility] and placed on oral vancomycin. She did recently receive oral Flagyl and fluconazole for bacterial vaginosis; however, that has been discontinued. Apparently, she did receive some antibiotics at [facility] 2 months ago. Currently, this patient is lying in bed. She is feeling a little bit better, but still complains of ongoing diarrhea. She has had chills. No gross sweats. No gross fevers that she knows of now. No headache, sore throat, cough or chest pain. No rash. PAST MEDICAL HISTORY: Positive for asthma, MRSA, history of VRE, endocarditis, C. diff, bladder dysfunction secondary to bladder cancer, hyperlipidemia, osteoarthritis, type 2 diabetes, hepatitis C, morbid obesity, hypothyroidism, rheumatoid arthritis, personality disorder, anxiety, depression, chronic pain syndrome, fibromyalgia and DVT. PAST SURGICAL HISTORY: Positive for appendectomy, cholecystectomy, total abdominal hysterectomy, bilateral salpingo-oophorectomy, rotator cuff repair, Port-A-Cath placement and removal, right shoulder replacement and urostomy. REVIEW OF SYSTEMS: Otherwise, negative. ALLERGIES: LISTED SULFA, PENICILLIN, CEPHALEXIN, MINOCYCLINE, MOXIFLOXACIN, ALSO LISTED IS MORPHINE, DILAUDID, ZYPREXA, AND BUTORPHANOL. FAMILY HISTORY: Noncontributory. SOCIAL HISTORY: She is a custodial resident. No tobacco or alcohol. CURRENT MEDICATIONS: Include cholestyramine, Flexeril, Pepcid, Neurontin, Lactobacillus, Lamictal, levothyroxine, Trileptal, Protonix, p.o. vancomycin, Risperdal, Desyrel, Topamax, Xarelto. PHYSICAL EXAMINATION: VITAL SIGNS: T-max has been 98.7, current temperature 97.9, pulse 61, respirations 17, blood pressure 95/56. CONSTITUTIONAL: She is alert, cooperative. She is no acute distress. She was talking on the phone. HEENT: Pupils are equal and reactive. Normal conjunctivae. Oral cavity: Pharynx is clear. NECK: Supple. LUNGS: Decreased at bases. HEART: S1, S2. ABDOMEN: Obese, soft, nontender. She has urostomy in the right mid lower quadrant. No complications. EXTREMITIES: No clubbing, cyanosis or gross edema. NEUROLOGIC: She is alert, answers questions, moves all extremities. PSYCHIATRIC: Affect is appropriate. SKIN: Warm to touch without signs of rash. LABORATORY VALUES: White count was 4.6, hemoglobin 12.8, platelets 193, neutrophils 45, lymphs are 40. Creatinine 0.8, glucose 114 with normal liver function study tests. There are no radiological studies. IMPRESSION: 1. Loose stools with Clostridium difficile toxin positive on outpatient study, had been on Flagyl previously at lower dose, so could be partially treated. 2. Subjective chills. 3. Vancomycin-resistant Enterococcus in the stool represents colonization. 4. Antibiotic allergies. RECOMMENDATIONS: For now, continue vancomycin. We will follow up on the C. diff and if negative, may need a GI evaluation. I did review Raysa Sullivan notes. Thank you for the opportunity to participate in the patient's care. If you have any questions, please do not hesitate to contact me. HAL JOHNSON MD DR: SHENG/christina JOB#: [id number] / [id number]
[2018-03-07 03:00] VITALS: BP 158/90
[2018-03-07] MEDS: POTASSIUM CL 20MEQ D5-0.45NACL 1,000 ML IV SCH ×3 (05:00→20:15)
[2018-03-07] MEDS: LEVOTHYROXINE 50 MCG TABLET PO SCH (06:33)
[2018-03-07 07:00] VITALS: BP 134/50
--- NOTE | 2018-03-07 07:05 | PDOC ---
Infectious Disease Note Subjective Subjective Had 4 stools overnight Remembers taking Cipro 2 weeks ago for a Klebsiella in her urine Currently no F/C/S/SOA/Rash A little nausea ROS ROS o/w neg Vital Sign Vital Signs Vital Signs Date Time Temp Pulse Resp B/P (MAP) Pulse Ox O2 Delivery O2 Flow Rate FiO2 03/07/18 03:00 97.6 81 19 158/90 (112) 96 Room Air 97.6 Physical Exam PHYSICAL EXAM CONSTITUTIONAL: She is alert, cooperative. She is no acute distress. She was talking on the phone. HEENT: Pupils are equal and reactive. Normal conjunctivae. Oral cavity: Pharynx is clear. NECK: Supple. LUNGS: Decreased at bases. HEART: S1, S2. ABDOMEN: Obese, soft, nontender. She has urostomy in the right mid lower quadrant. No complications. EXTREMITIES: No clubbing, cyanosis or gross edema. NEUROLOGIC: She is alert, answers questions, moves all extremities. PSYCHIATRIC: Affect is appropriate. SKIN: Warm to touch without signs of rash. Objective Assessment loose stool Subjective chills VRE - stool - colonization Abx allergies - sulfa/cephalexin/minocycline/moxiflox - tolerated cipro - states abx cause nausea MRSA+ screen Plan Plan of Care Cont po Vanc f/u c-diff - if neg may need GI eval Hold Immodium until C-diff back Labs in am HAL JOHNSON MD Mar 07, 2018 07:05
[2018-03-07] MEDS: KETOTIFEN FUMARATE 0.025% OPHTH SOLUTION BOTTLE. OU SCH ×2 (09:25→20:08)
[2018-03-07] MEDS: MICONAZOLE NITRATE 2% TOPICAL CREAM 28GM TUBE. TP SCH ×2 (09:26→20:06)
[2018-03-07] MEDS: LORazepam 0.5 MG TABLET PO PRN ×2 (09:26→20:15)
[2018-03-07] MEDS: POTASSIUM CHLORIDE 20 MEQ TABLET.ER. PO SCH (09:27)
[2018-03-07] MEDS: lamoTRIgine 100 MG TABLET. PO SCH ×2 (09:27→20:07)
[2018-03-07] MEDS: VANCOMYCIN 125 MG/2.5 ML ORAL SOLUTION. PO SCH ×4 (09:27→20:14)
[2018-03-07] MEDS: FAMOTIDINE 20 MG TABLET. PO SCH ×2 (09:27→20:06)
[2018-03-07] MEDS: OXcarbazepine 300 MG TABLET PO SCH ×2 (09:27→20:07)
[2018-03-07] MEDS: LACTOBACILLUS RHAMNOSUS GG 1 CAPSULE. PO SCH ×2 (09:27→20:14)
[2018-03-07] MEDS: GABAPENTIN 100 MG CAPSULE. PO SCH ×2 (09:27→20:06)
[2018-03-07] MEDS: METOPROLOL TART IMMED RELEASE 25 MG TABLET. PO SCH (09:29)
[2018-03-07] MEDS: HYDROCORTISONE 1% TOPICAL CREAM 30GM TUBE. TP SCH ×2 (09:29→20:05)
[2018-03-07] MEDS: risperiDONE 1 MG TABLET. PO SCH ×2 (09:29→20:07)
[2018-03-07] MEDS: CHOLESTYRAMINE/ASPARTAME 4 GM PACKET PO SCH ×2 (09:29→20:09)
[2018-03-07 11:00] VITALS: BP 134/50
[2018-03-07] MEDS: hydrOXYzine PAMOATE 25 MG CAPSULE PO PRN (11:50)
[2018-03-07 15:00] VITALS: BP 128/47
[2018-03-07] MEDS ORDERED: methylPREDNISolone ACETATE 40 MG/ML VIAL. IM ONE (16:30)
[2018-03-07] MEDS ORDERED: BUPIVACAINE MPF 0.25% 30 ML VIAL. IJ ONE (16:30)
--- NOTE | 2018-03-07 17:30 | PDOC2 ---
CONSULT Date of Consult Date of Consult DATE: 03/07/18 TIME: 17:26 Reason for Consult Reason for Consult: vaginal discharge Referring Physician Referring Physician: Dr. Mckeon Identification/Chief Complaint Chief Complaint vaginal discharge Source Source: Chart review, Patient History of Present Illness Reason for Visit: 67 y/o with h/o chronic vaginitis and h/o DM Type 2. Past Medical History CENTRAL NERVOUS SYSTEM: Other Renal/: Other Endocrine: Diabetes Social History ALCOHOL: none Lives: Senior Care Current Medications Current Medications Current Medications Dextrose/Sodium Chloride 1,000 ml @ 125 mls/hr Q8H IV ; Start 03/05/18 at 18: 00; Stop 03/05/18 at 20:06; Status DC Vancomycin HCl (Vancomycin Oral Solution) 125 mg [id number] PO Last administered on 03/07/18at 13:21; Start 03/05/18 at 21:00 Potassium Chloride/Dextrose/ Sod Cl 1,000 ml @ 125 mls/hr Q8H IV Last administered on 03/06/18at 08:18; Start 03/05/18 at 21:00 Acetaminophen (Tylenol) 650 mg Q6HRS PO ; Start 03/06/18 at 00:00; Stop at 00:00; Status DC Cholestyramine Resin (Questran Light) 4 gm BID PO Last administered on at 09:19; Start 03/05/18 at 21:00 Cyclobenzaprine HCl (Flexeril) 10 mg PRN TID PRN PO MUSCLE SPASMS Last administered on 03/06/18at 22:23; Start 03/05/18 at 20:15 Diclofenac Sodium (Voltaren) 1 marleni PRN BID PRN TP knee pain Last administered on 03/06/18at 22:16; Start 03/05/18 at 20:15 Gabapentin (Neurontin) 100 mg DAILY PO Last administered on 03/07/18at 09:27; Start 03/06/18 at 09:00 Acetaminophen/ Hydrocodone Bitart (Lortab 5/325) 1 tab PRN Q4HRS PRN PO MODERATE TO SEVERE PAIN Last administered on 03/07/18at 13:26; Start 03/05/18 at 20:15 Albuterol/ Ipratropium (Duoneb) 3 ml QIDPRN PRN NEB SHORTNESS OF BREATH; Start 03/05/18 at 20:15 Lorazepam (Ativan) 0.5 mg PRN Q6HRS PRN PO ANXIETY Last administered on at 09:26; Start 03/05/18 at 20:15 Metoprolol Tartrate (Lopressor) 12.5 mg DAILY PO Last administered on at 09:29; Start 03/06/18 at 09:00 Nitroglycerin (Nitrostat) 0.4 mg PRN Q5MIN PRN SL CHEST PAIN; Start 03/05/18 at 20:15 Ondansetron HCl (Zofran Odt) 4 mg PRN Q6HRS PRN PO NAUSEA/VOMITING; Start at 20:15 Artificial Tears (Artificial Tears) 2 drop HS OU Last administered on at 22:12; Start 03/05/18 at 21:00 Non-Formulary Medication (Cranberry Extract (Cranberry)) 425 mg TID PO ; Start 03/05/18 at 21:00; Status UNV Non-Formulary Medication (Dextran 70/ Hypromellose (Artificial Tears Eye Drops) ) 2 drop PRN Q4HRS PRN EACHEYE DRY EYE; Start 03/05/18 at 20:15; Status UNV Gabapentin (Neurontin) 300 mg TID PO ; Start 03/05/18 at 21:00; Stop 03/05/18 at 21:00; Status DC Hydrocortisone (Cortaid) 1 marleni BID TP Last administered on 03/07/18at 09:29; Start 03/05/18 at 20:30 Hydroxyzine Pamoate (Vistaril) 50 mg PRN Q12HRS PRN PO ITCHING Last administered on 03/07/18at 11:50; Start 03/05/18 at 20:30 Ketotifen Fumarate (Zaditor) 1 drop BID OU Last administered on 03/07/18at 09: 25; Start 03/05/18 at 21:00 Lactobacillus Rhamnosus (Culturelle) 1 cap BID PO Last administered on at 09:27; Start 03/05/18 at 21:00 Lamotrigine (LaMICtal) 100 mg BID PO Last administered on 03/07/18at 09:27; Start 03/05/18 at 21:15 Latanoprost (Xalatan) 1 drop QHS OU Last administered on 03/06/18at 22:12; Start 03/05/18 at 21:00 Levothyroxine Sodium (Synthroid) 50 mcg DAILY06 PO Last administered on at 06:33; Start 03/06/18 at 06:00 Loperamide HCl (Imodium) 2 mg PRN Q4HRS PRN PO DIARRHEA; Start 03/05/18 at 21: 00; Stop 03/06/18 at 12:38; Status DC Non-Formulary Medication (Melatonin ) 5 mg QHS PRN PO insomnia; Start at 20:15; Status UNV Multi-Ingredient Ointment (Analgesic [place] [facility]) 1 marleni PRN QID PRN TP MUSCLE PAIN; Start 03/05/18 at 21:00 Miconazole Nitrate (Monistat-Derm) 1 marleni BID TP Last administered on at 09:26; Start 03/06/18 at 09:00 Oxcarbazepine (Trileptal) 600 mg BID PO Last administered on 03/07/18at 09:27; Start 03/05/18 at 21:00 Pantoprazole Sodium (Protonix) 40 mg DAILYAC PO Last administered on at 06:11; Start 03/06/18 at 07:30; Stop 03/06/18 at 07:30; Status DC Potassium Chloride (Klor-Con) 20 meq [id number] PO Last administered on at 09:27; Start 03/06/18 at 08:00 Risperidone (RisperDAL) 1 mg BID PO Last administered on 03/07/18at 09:29; Start 03/05/18 at 21:15 Rivaroxaban (Xarelto) 20 mg HS PO Last administered on 03/06/18at 22:14; Start 03/05/18 at 21:00 Topiramate (Topamax) 25 mg HS PO Last administered on 03/06/18at 22:15; Start 03/05/18 at 21:15 Trazodone HCl (Desyrel) 150 mg PRN QHS PRN PO INSOMNIA; Start 03/05/18 at 21: 15 Trazodone HCl (Desyrel) 100 mg QHS PO Last administered on 03/06/18at 22:14; Start 03/05/18 at 21:15 Phenyleph/Shark Oil/Min Oil/Petrol (Preparation H) 1 marleni PRN Q4HRS PRN RC RECTAL PAIN; Start 03/05/18 at 21:00 Gabapentin (Neurontin) 300 mg HS PO Last administered on 03/06/18at 22:23; Start 03/05/18 at 21:00 Acetaminophen (Tylenol) 650 mg PRN Q6HRS PRN PO MILD PAIN / TEMP Last administered on 03/06/18at 17:30; Start 03/05/18 at 21:15 Pharmacy Consult (C.diff Med Screen By Rx) 1 each 1X ONCE MC ; Start 03/06/18 at 02:00; Stop 03/06/18 at 02:01; Status DC Influenza Virus Vaccine (Afluria Trivalent [id number] Syringe) 0.5 ml ONCE ONCE VAX IM ; Start 03/06/18 at 09:00; Stop 03/06/18 at 11:25; Status DC Famotidine (Pepcid) 20 mg BID PO Last administered on 03/07/18at 09:27; Start 03/06/18 at 21:00 Methylprednisolone Acetate (DEPO-Medrol 40MG VIAL) 40 mg 1X ONCE IM Last administered on 03/07/18at 16:00; Start 03/07/18 at 16:30; Stop 03/07/18 at 16 :31; Status DC Bupivacaine HCl (Sensorcaine Mpf 0.25%) 10 ml 1X ONCE IJ Last administered on 03/07/18at 16:00; Start 03/07/18 at 16:30; Stop 03/07/18 at 16:31; Status DC Fluconazole (Diflucan) 100 mg QODAY PO ; Start 03/07/18 at 18:00; Stop at 17:59 Nystatin (Mycostatin) 1 marleni BID TP ; Start 03/07/18 at 21:00 Triamcinolone Acetonide (Kenalog) 1 marleni BID TP ; Start 03/07/18 at 21:00 Active Scripts Active Reported Trazodone Hcl 150 Mg Tablet 1 Tab PO PRN QHS PRN Trazodone Hcl 150 Mg Tablet 1 Tab PO QHS Topamax (Topiramate) 25 Mg Tablet 1 Tab PO HS Risperdal (Risperidone) 1 Mg Tablet 1 Tab PO BID Preparation H (Witch Evelyn) 1 Each Med..pad 1 Each RC PRN Q4HRS PRN Potassium Chloride 20 Meq Tablet.er 20 Meq PO DAILY Oxcarbazepine 300 Mg Tablet 2 Tab PO BID Biofreeze (Menthol) 118 Ml Gel..ml. 1 Each TP PRN Q6HRS PRN Loperamide (Loperamide Hcl) 2 Mg Capsule 2 Mg PO PRN Q4HRS PRN Artificial Tears Eye Drops (Dextran 70/Hypromellose) 15 Ml Drops 2 Drop EACHEYE PRN Q4HRS PRN Probiotic (Lactobacillus Acidophilus) 1 Each Capsule 1 Each PO BID Hydroxyzine Hcl 50 Mg Tablet 50 Mg PO PRN BID PRN Hydrocodone-Apap 5-325 (Hydrocodone Bit/Acetaminophen) 1 Each Tablet 1 Tab PO PRN Q4HRS PRN Miconazole Nitrate 130 Gm Aero.powd 1 Applic TP BID Latanoprost 2.5 Ml Drops 1 Drop OU HS Hydrocortisone 453.6 Gm Cream..g. 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 NITROGLYCERIN SubLingual (Nitroglycerin) 0.4 Mg Tab.subl 0.4 Mg SL PRN Q5MIN PRN Melatonin 3 Mg Tablet 5 Mg PO QHS PRN Zofran Odt (Ondansetron) 4 Mg Tab.rapdis 1 Tab SL PRN Q6HRS PRN Xarelto (Rivaroxaban) 20 Mg Tablet 20 Mg PO QHS Senokot (Sennosides) 8.6 Mg Tablet 8.6 Mg PO DAILY Potassium Chloride 20 Meq Tablet.er 20 Meq PO DAILY Protonix (Pantoprazole Sodium) 20 Mg Tablet.dr 2 Tab PO BID Metoprolol Tartrate 25 Mg Tablet 0.5 Tab PO DAILY Lorazepam 0.5 Mg Tablet 1 Tab PO Q6HRS PRN Levothyroxine Sodium 50 Mcg Tablet 1 Tab PO DAILY Lamotrigine 100 Mg Tablet 1 Tab PO BID Zaditor (Ketotifen Fumarate) 5 Ml Drops 1 Drop EACHEYE TID Gabapentin 100 Mg Capsule 100 Mg PO DAILY Gabapentin 300 Mg Capsule 300 Mg PO QHS Furosemide 40 Mg Tablet 40 Mg PO BID Duoneb 0.5-3(2.5) Mg/3 Ml (Albuterol/Ipratropium) 3 Ml Ampul.neb 3 Ml NEB QIDPRN PRN Voltaren (Diclofenac Sodium) 100 Gm Gel..gram. 1 Gm TP BID PRN Cyclobenzaprine Hcl 10 Mg Tablet 1 Tab PO TID PRN Cranberry (Cranberry Extract) 425 Mg Capsule 425 Mg PO TID Cholestyramine Light Packet (Cholestyramine/Aspartame) 4 Gm Powd.pack 4 Gm PO BID Artificial Tears (Polyvinyl Alcohol) 15 Ml Drops 2 Drop OU HS Acetaminophen 325 Mg Tablet 650 Mg PO Q6HRS Allergies Allergies: Coded Allergies: Sulfa (Sulfonamide Antibiotics) (Verified Allergy, Intermediate, 11/15/17) butorphanol (Verified Allergy, Intermediate, 11/15/17) cephalexin (Verified Allergy, Intermediate, rash, 11/15/17) duloxetine (Verified Allergy, Intermediate, 11/15/17) hydromorphone (Verified Allergy, Intermediate, 11/15/17) metoclopramide (Verified Allergy, Intermediate, 11/12/17) minocycline (Verified Allergy, Intermediate, 11/12/17) moxifloxacin (Verified Allergy, Intermediate, 11/12/17) I S O L A T I O N *CONTACT* (Verified Allergy, Unknown, 11/14/17) mrsa ROS General: YES: Fatigue; No: Chills, Night Sweats, Malaise, Appetite, Other PSYCHOLOGICAL ROS: YES: Anxiety; No: Behavioral Disorder, Concentration difficultie, Decreased libido, Depression, Disorientation, Hallucinations, Hostility, Irritablity, Memory difficulties, Mood Swings, Obsessive thoughts, Physical abuse, Sexual abuse, Sleep disturbances, Suicidal ideation, Other Eyes: No Blurry vision, No Decreased vision, No Double vision, No Dry eyes, No Excessive tearing, No Eye Pain, No Itchy Eyes, No Loss of vision, No Photophobia , No Scotomata, No Uses contacts, No Uses glasses, No Other HEENT: No: Heacaches, Visual Changes, Hearing change, Nasal congestion, Nasal discharge, Oral lesions, Sinus pain, Sore Throat, Epistaxis, Sneezing, Snoring, Tinnitus, Vertigo, Vocal changes, Other ALLERGY AND IMMUNOLOGY: No: Hives, Insect Bite Sensitivity, Itchy/Watery Eyes, Nasal Congestion, Post Nasal Drip, Seasonal Allergies, Other ENDOCRINE: No: Breast Changes, Galactorrhea, Hair Pattern Changes, Hot Flashes , Malaise/lethargy, Mood Swings, Palpitations, Polydipsia/polyuria, Skin Changes , Temperature Intolerance, Unexpected Weight Changes, Other Breast: No New/Changing Breast Lumps, No Nipple changes, No Nipple discharge, No Other Respiratory: No: Cough, Hemoptysis, Orthopnea, Pleuritic Pain, Shortness of breath, SOB with excertion, Sputum Changes, Stridor, Tachypnea, Wheezing, Other Cardiovascular: No Chest Pain, No Palpitations, No Orthopnea, No Paroxysmal Noc. Dyspnea, No Edema, No Lt Headedness, No Other Gastrointestinal: No Nausea, No Vomiting, No Abdominal Pain, No Diarrhea, No Constipation, No Melena, No Hematochezia, No Other Physical Exam General: Alert HEENT: Atraumatic Lungs: Clear to auscultation Heart: Regular rate Abdomen: Normal bowel sounds, Soft, Other (white vaginal discharge; malodorous ; wet prep obtained.) Skin: No rashes Vitals VITALS Vital Signs Date Time Temp Pulse Resp B/P (MAP) Pulse Ox O2 Delivery O2 Flow Rate FiO2 03/07/18 15:00 97.9 52 20 128/47 (74) 96 Room Air 97.9 Labs Labs Laboratory Tests Test 03/05/18 17:45 03/05/18 21:23 White Blood Count 4.6 x10^3/uL (4.0-11.0) Red Blood Count 4.30 x10^6/uL (3.50-5.40) Hemoglobin 12.8 g/dL (12.0-15.5) Hematocrit 37.4 % (36.0-47.0) Mean Corpuscular Volume 87 fL (79-100) Mean Corpuscular Hemoglobin 30 pg (25-35) Mean Corpuscular Hemoglobin Concent 34 g/dL (31-37) Red Cell Distribution Width 15.4 % (11.5-14.5) Platelet Count 193 x10^3/uL (140-400) Neutrophils (%) (Auto) 45 % (31-73) Lymphocytes (%) (Auto) 40 % (24-48) Monocytes (%) (Auto) 9 % (0-9) Eosinophils (%) (Auto) 6 % (0-3) Basophils (%) (Auto) 1 % (0-3) Neutrophils # (Auto) 2.1 x10^3uL (1.8-7.7) Lymphocytes # (Auto) 1.8 x10^3/uL (1.0-4.8) Monocytes # (Auto) 0.4 x10^3/uL (0.0-1.1) Eosinophils # (Auto) 0.3 x10^3/uL (0.0-0.7) Basophils # (Auto) 0.0 x10^3/uL (0.0-0.2) Sodium Level 140 mmol/L (136-145) Potassium Level 3.3 mmol/L (3.5-5.1) Chloride Level 104 mmol/L (98-107) Carbon Dioxide Level 27 mmol/L (21-32) Anion Gap 9 (6-14) Blood Urea Nitrogen 20 mg/dL (7-20) Creatinine 0.8 mg/dL (0.6-1.0) Estimated GFR (Cockcroft-Gault) 71.3 BUN/Creatinine Ratio 25 (6-20) Glucose Level 114 mg/dL (70-99) Calcium Level 8.6 mg/dL (8.5-10.1) Total Bilirubin 0.2 mg/dL (0.2-1.0) Aspartate Amino Transf (AST/SGOT) 22 U/L (15-37) Alanine Aminotransferase (ALT/SGPT) 21 U/L (14-59) Alkaline Phosphatase 149 U/L (46-116) Total Protein 7.5 g/dL (6.4-8.2) Albumin 3.6 g/dL (3.4-5.0) Albumin/Globulin Ratio 0.9 (1.0-1.7) Nasal Screen MRSA (PCR) Positive (Negative) Assessment/Plan Assessment/Plan A: Chronic Vaginitis P: Wet prep obtained. Treat with Difulcan qod x 1 wk and mycolog cream TID. Thank you for consult. DELANO ROSEN Jr, MD Mar 07, 2018 17:30
[2018-03-07] MEDS: FLUCONAZOLE 100 MG TABLET. PO SCH (17:55)
[2018-03-07 19:00] VITALS: BP 134/76
[2018-03-07] MEDS: NYSTATIN 100,000 UNIT/GM TOPICAL CREAM 15GM TUBE. TP SCH (20:05)
[2018-03-07] MEDS: TRIAMCINOLONE ACETONIDE 0.1% TOPICAL CREAM 15GM TUBE. TP SCH (20:05)
[2018-03-07] MEDS: RIVAROXABAN 10 MG TABLET. PO SCH (20:06)
[2018-03-07] MEDS: TOPIRAMATE 25 MG TABLET. PO SCH (20:06)
[2018-03-07] MEDS: traZODone 50 MG TABLET. PO SCH (20:07)
[2018-03-07] MEDS: LATANOPROST 0.005% OPHTH SOLUTION 2.5ML BOTTLE. OU SCH (20:08)
[2018-03-07] MEDS: POLYVINYL ALCOHOL 1.4% OPHTH SOLUTION 15ML BOTTLE. OU SCH (20:08)
[2018-03-07] MEDS: GABAPENTIN 300 MG CAPSULE. PO SCH (20:14)
[2018-03-07 23:00] VITALS: BP 103/60
--- NOTE | 2018-03-07 23:01 | PN ---
DATE: 03/07/2018 SUBJECTIVE: The patient is resting flat, comfortably in bed, in no apparent distress. She continued to have diarrhea. She said that she has about 7 episodes of loose bowel movement yesterday and today, according to the patient, she has 3 episodes of what seems to be a more formed stool. 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 Denied any nausea or vomiting. Denied any abdominal pain. She continued to complain of severe pain in her right knee and also foul smelling drainage from her vagina despite treatment with fluconazole and Flagyl before. PHYSICAL EXAMINATION: GENERAL: When I examined her this morning, she was resting flat comfortably in bed, in no apparent respiratory distress. No pallor, jaundice, cyanosis, or thyromegaly. No jugular venous distension. No limb edema. VITAL SIGNS: Her heart rate was 81, blood pressure was 134/50, temperature was 97.7, respiratory rate 22 and oxygen saturation was 97%. HEAD, EYES, EARS, NOSE AND THROAT: Normocephalic, atraumatic. NECK: Supple. HEART: Showed normal first and second heart sounds. No gallop, rub or murmur. CHEST: Clear to auscultation. No crepitation or rhonchi. ABDOMEN: Distended, soft, nontender. NEUROLOGIC: She is awake, alert, responding appropriately. Cranial nerves intact. She moves extremities without difficulty. She is mostly bedbound, chair bound. Her intake was 1100. No output was recorded. LABORATORY DATA: She has no lab work done today. Her nasal screen for MRSA was positive. Her most recent BUN was 20, creatinine 0.8. Her hemoglobin was 12.8, hematocrit 37 with normal white cell count and platelets. ASSESSMENT: Clostridium difficile colitis, for which she is on IV fluid and oral vancomycin as well as Lactobacillus acidophilus. I did hold her Lasix as she was complaining of dizziness, lightheadedness, and weakness. She has multiple other medical problems including previous history of Clostridium difficile colitis, bronchial asthma, gastroesophageal reflux disease, hypothyroidism, anxiety and depression, hypertension, fibromyalgia, osteoarthritis, personality disorder. She also had history of bladder cancer, status post radical cystectomy and urostomy, chronic atrial fibrillation/flutter for which she is on metoprolol to slow the heart rate and Xarelto for stroke prevention, history also of staghorn calculi before. PLAN: To continue with oral vancomycin, continue with Lactobacillus. She has her lab works and C. diff toxins. Repeat again tomorrow as per Infectious Disease if VRE represents contamination. JOVANNA RAE MD DR: VERNELL/christina JOB#: [id number] / [id number]
--- NOTE | 2018-03-08 00:26 | CONS ---
DATE OF CONSULTATION: 03/07/2018 ATTENDING PHYSICIAN: Maria Guadalupe Ramirez MD REASON FOR CONSULTATION: The patient was seen at the request of Dr. Ramirez for rehab evaluation about her knee pain. 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 ([place], [place] Re[facility] in [place], [place], for about 9 years, has not walked in about 9 years. She usually gets up into the chair with help. The patient was admitted on 03/05/2018 with recurrent bouts of diarrhea with loose watery bowel movement and culture showed positive for C. diff toxin, negative for salmonella and Shigella, but VRE was isolated from her stool culture. She was extremely weak, dehydrated and dizzy, admitted to the hospital for rehydration and started on oral vancomycin. She was on Flagyl and fluconazole for vulvovaginal candidiasis and possible bacterial vaginosis, however, that were discontinued since her admission. She had C. diff colitis in the past and received antibiotics within the last 2 months, as she was admitted at [facility] and also treated for urinary tract infection. PAST MEDICAL HISTORY: Significant for bronchial asthma, MRSA endocarditis, bladder dysfunction secondary to bladder carcinoma status post urostomy, hyperlipidemia, osteoarthritis of both knees, status post surgery on her both knees, osteoporosis, type 2 diabetes mellitus, hepatitis C, morbid obesity, hypothyroidism, rheumatoid arthritis, personality disorder, anxiety, depression, chronic pain syndrome, fibromyalgia, previous DVT, status post appendectomy, cholecystectomy, abdominal hysterectomy, bilateral salpingo-oophorectomy, bilateral rotator cuff repair, right shoulder replacement. ALLERGIES: She is known allergic to SULFA, BUTORPHANOL, CEPHALEXIN, DULOXETINE, HYDROMORPHONE, MINOCYCLINE, MOXIFLOXACIN. The patient complains of pain in her knees and wants injections done. She had injection done by Dr. Quinn last year, which helped for a while. PHYSICAL EXAMINATION: Today revealed a middle-aged female. She is alert, oriented to time, place, person and circumstance and follows commands appropriately, moves all 4 extremities voluntarily where she had 4+/5 grade muscle strength. Deep tendon reflexes are absent at both knees and ankles and she had equal perception of touch and pinprick sensation bilaterally. She had crepitus on range of motion of her knee joints with mild knee joint effusion. She had pain-free range of motion of both hip joints. She had tenderness to palpation over sacroiliac joint area. Straight leg raising test is negative bilaterally. She is independent with rolling from side to side. I have not tested her transfers or ambulation skills at present time. She is obese. Her skin is intact at this time. She had an indwelling Villalba catheter in place. ASSESSMENT: A middle-aged female with morbid obesity, degenerative joints of both knees, status post osteotomy in the past with continued knee joint pain and also chronic lower back pain from degenerative disk disease of lumbar vertebrae, clinical evidence of peripheral neuropathy, most probably from her diabetes mellitus. The patient was hospitalized with recurrent C. diff colitis, dehydration, also vancomycin resistant Enterococcus positive stool culture, also with known anxiety, depression, chronic pain syndrome, fibromyalgia, personality disorder, rheumatoid arthritis, hypothyroidism, hepatitis C, positive osteoporosis, hyperlipidemia, bladder dysfunction secondary to bladder carcinoma status post urostomy, Methicillin-resistant Staphylococcus aureus endocarditis, bronchial asthma. RECOMMENDATIONS: At her request, I have injected her right knee under aseptic skin technique after skin prepped and using alcohol swab and she tolerated the procedure satisfactorily without any side effects. To consider injecting her left knee on as needed basis before her discharge. I have instructed her in isometric strengthening exercise to her lower extremity muscle groups, as she had some limitation of knee joint extension by around [address] Ramirez, I appreciate asking me to participate in care of this interesting patient. I will be glad to follow her with you as needed for her rehabilitation. MARCUS MCLEOD MD DR: HARJINDER/christina JOB#: [id number] / [id number]
[2018-03-08] MEDS: HYDROcodone/APAP 5/325MG 1 TAB TABLET PO PRN ×4 (02:26→19:55)
[2018-03-08] MEDS: hydrOXYzine PAMOATE 25 MG CAPSULE PO PRN ×2 (02:30→15:17)
[2018-03-08 03:00] VITALS: BP 134/68
[2018-03-08] MEDS: LEVOTHYROXINE 50 MCG TABLET PO SCH (06:16)
[2018-03-08] MEDS: POTASSIUM CL 20MEQ D5-0.45NACL 1,000 ML IV SCH ×2 (06:16→12:53)
[2018-03-08 07:00] VITALS: BP 124/56
--- NOTE | 2018-03-08 07:13 | PDOC ---
Infectious Disease Note Subjective Subjective Had 6 loose stools overnight but nursing reports 3 Remembers taking Cipro 2 weeks ago for a Klebsiella in her urine Currently no F/C/S/SOA/Rash A little nausea at times ROS ROS o/w neg Vital Sign Vital Signs Vital Signs Date Time Temp Pulse Resp B/P (MAP) Pulse Ox O2 Delivery O2 Flow Rate FiO2 03/08/18 03:00 96.7 60 18 134/68 (90) 96 Room Air 96.7 Physical Exam PHYSICAL EXAM CONSTITUTIONAL: She is alert, cooperative. She is no acute distress. HEENT: Pupils are equal and reactive. Normal conjunctivae. Oral cavity: Pharynx is clear. NECK: Supple. LUNGS: Decreased at bases. HEART: S1, S2. ABDOMEN: Obese, soft, nontender. She has urostomy in the right mid lower quadrant. No complications. EXTREMITIES: No clubbing, cyanosis or gross edema. NEUROLOGIC: She is alert, answers questions, moves all extremities. PSYCHIATRIC: Affect is appropriate. SKIN: Warm to touch without signs of rash. Labs Micro Microbiology 03/07/18 Wet Prep - Final, Complete Objective Assessment loose stool - C-diff neg. Has been in nursing facility so other infectious pathogens less likely particularly without fever and WBC. No salmonella or shigella from 03/04 Subjective chills S/p right knee injection 03/07 VRE - stool - colonization Abx allergies - sulfa/cephalexin/minocycline/moxiflox - tolerated cipro - states abx cause nausea MRSA+ screen Plan Plan of Care Discont po Vanc Rotavirus antigen not available. CMV less likely Labs pending May need GI HAL Duke MD Mar 08, 2018 07:13
[2018-03-08] MEDS: CHOLESTYRAMINE/ASPARTAME 4 GM PACKET PO SCH ×2 (09:00→19:55)
[2018-03-08] MEDS: MICONAZOLE NITRATE 2% TOPICAL CREAM 28GM TUBE. TP SCH ×2 (09:00→19:59)
[2018-03-08] MEDS: METOPROLOL TART IMMED RELEASE 25 MG TABLET. PO SCH (09:00)
[2018-03-08] MEDS: GABAPENTIN 100 MG CAPSULE. PO SCH (10:04)
[2018-03-08] MEDS: OXcarbazepine 300 MG TABLET PO SCH ×2 (10:05→19:54)
[2018-03-08] MEDS: FAMOTIDINE 20 MG TABLET. PO SCH ×2 (10:05→19:55)
[2018-03-08] MEDS: risperiDONE 1 MG TABLET. PO SCH ×2 (10:05→19:55)
[2018-03-08] MEDS: POTASSIUM CHLORIDE 20 MEQ TABLET.ER. PO SCH (10:06)
[2018-03-08] MEDS: LACTOBACILLUS RHAMNOSUS GG 1 CAPSULE. PO SCH ×2 (10:07→19:55)
[2018-03-08] MEDS: lamoTRIgine 100 MG TABLET. PO SCH ×2 (10:07→19:55)
[2018-03-08] MEDS: DICLOFENAC SODIUM 1% TOPICAL GEL 100GM TUBE. TP PRN (10:08)
[2018-03-08] MEDS: KETOTIFEN FUMARATE 0.025% OPHTH SOLUTION BOTTLE. OU SCH ×2 (10:12→19:57)
[2018-03-08] MEDS: TRIAMCINOLONE ACETONIDE 0.1% TOPICAL CREAM 15GM TUBE. TP SCH ×2 (10:13→19:58)
[2018-03-08] MEDS: NYSTATIN 100,000 UNIT/GM TOPICAL CREAM 15GM TUBE. TP SCH ×2 (10:13→19:58)
[2018-03-08] MEDS: HYDROCORTISONE 1% TOPICAL CREAM 30GM TUBE. TP SCH ×2 (10:13→19:58)
--- NOTE | 2018-03-08 10:15 | PDOC ---
PROGRESS NOTES Subjective Subjective She feels better with right knee and wants left knee injected before her discharge to [place] and she wants to get up. Objective Objective Vital Signs Date Time Temp Pulse Resp B/P (MAP) Pulse Ox O2 Delivery O2 Flow Rate FiO2 03/08/18 07:00 97.7 57 18 124/56 (78) Room Air 97.7 03/08/18 03:00 96 Intake and Output 03/08/18 07:00 Intake Total 1120 ml Output Total 4175 ml Balance -3055 ml Intake Oral 1120 ml Output Urine Total 4175 ml # Bowel Movements 4 Physical Exam Physical Exam She is alert,supine in bed and comfortable. Plan Plan of Care To have physical therapy to see her. Comment Review of Relevant I have reviewed the following items braxton (where applicable) has been applied. Labs Laboratory Tests Test 03/06/18 18:30 Clostridium difficile Toxin (PCR) Negative (Negative) Microbiology 03/07/18 Wet Prep - Final, Complete Medications Current Medications Dextrose/Sodium Chloride 1,000 ml @ 125 mls/hr Q8H IV ; Start 03/05/18 at 18: 00; Stop 03/05/18 at 20:06; Status DC Vancomycin HCl (Vancomycin Oral Solution) 125 mg [id number] PO Last administered on 03/07/18at 20:14; Start 03/05/18 at 21:00; Stop 03/08/18 at 07:11; Status DC Potassium Chloride/Dextrose/ Sod Cl 1,000 ml @ 125 mls/hr Q8H IV Last administered on 03/08/18at 06:16; Start 03/05/18 at 21:00 Acetaminophen (Tylenol) 650 mg Q6HRS PO ; Start 03/06/18 at 00:00; Stop at 00:00; Status DC Cholestyramine Resin (Questran Light) 4 gm BID PO Last administered on at 09:19; Start 03/05/18 at 21:00 Cyclobenzaprine HCl (Flexeril) 10 mg PRN TID PRN PO MUSCLE SPASMS Last administered on 03/06/18at 22:23; Start 03/05/18 at 20:15 Diclofenac Sodium (Voltaren) 1 marleni PRN BID PRN TP knee pain Last administered on 03/06/18at 22:16; Start 03/05/18 at 20:15 Gabapentin (Neurontin) 100 mg DAILY PO Last administered on 03/07/18 09:27; Start 03/06/18 at 09:00 Acetaminophen/ Hydrocodone Bitart (Lortab 5/325) 1 tab PRN Q4HRS PRN PO MODERATE TO SEVERE PAIN Last administered on 03/08/18at 02:26; Start 03/05/18 at 20:15 Albuterol/ Ipratropium (Duoneb) 3 ml QIDPRN PRN NEB SHORTNESS OF BREATH; Start 03/05/18 at 20:15 Lorazepam (Ativan) 0.5 mg PRN Q6HRS PRN PO ANXIETY Last administered on at 20:15; Start 03/05/18 at 20:15 Metoprolol Tartrate (Lopressor) 12.5 mg DAILY PO Last administered on at 09:29; Start 03/06/18 at 09:00 Nitroglycerin (Nitrostat) 0.4 mg PRN Q5MIN PRN SL CHEST PAIN; Start 03/05/18 at 20:15 Ondansetron HCl (Zofran Odt) 4 mg PRN Q6HRS PRN PO NAUSEA/VOMITING; Start at 20:15 Artificial Tears (Artificial Tears) 2 drop HS OU Last administered on at 20:08; Start 03/05/18 at 21:00 Non-Formulary Medication (Cranberry Extract (Cranberry)) 425 mg TID PO ; Start 03/05/18 at 21:00; Status UNV Non-Formulary Medication (Dextran 70/ Hypromellose (Artificial Tears Eye Drops) ) 2 drop PRN Q4HRS PRN EACHEYE DRY EYE; Start 03/05/18 at 20:15; Status UNV Gabapentin (Neurontin) 300 mg TID PO ; Start 03/05/18 at 21:00; Stop 03/05/18 at 21:00; Status DC Hydrocortisone (Cortaid) 1 marleni BID TP Last administered on 03/07/18at 20:05; Start 03/05/18 at 20:30 Hydroxyzine Pamoate (Vistaril) 50 mg PRN Q12HRS PRN PO ITCHING Last administered on 03/08/18at 02:30; Start 03/05/18 at 20:30 Ketotifen Fumarate (Zaditor) 1 drop BID OU Last administered on 03/07/18at 20: 08; Start 03/05/18 at 21:00 Lactobacillus Rhamnosus (Culturelle) 1 cap BID PO Last administered on at 20:14; Start 03/05/18 at 21:00 Lamotrigine (LaMICtal) 100 mg BID PO Last administered on 03/07/18at 20:07; Start 03/05/18 at 21:15 Latanoprost (Xalatan) 1 drop QHS OU Last administered on 03/07/18at 20:08; Start 03/05/18 at 21:00 Levothyroxine Sodium (Synthroid) 50 mcg DAILY06 PO Last administered on at 06:16; Start 03/06/18 at 06:00 Loperamide HCl (Imodium) 2 mg PRN Q4HRS PRN PO DIARRHEA; Start 03/05/18 at 21: 00; Stop 03/06/18 at 12:38; Status DC Non-Formulary Medication (Melatonin ) 5 mg QHS PRN PO insomnia; Start at 20:15; Status UNV Multi-Ingredient Ointment (Analgesic Armstrong) 1 marleni PRN QID PRN TP MUSCLE PAIN; Start 03/05/18 at 21:00 Miconazole Nitrate (Monistat-Derm) 1 marleni BID TP Last administered on at 20:06; Start 03/06/18 at 09:00 Oxcarbazepine (Trileptal) 600 mg BID PO Last administered on 03/07/18at 20:07; Start 03/05/18 at 21:00 Pantoprazole Sodium (Protonix) 40 mg DAILYAC PO Last administered on at 06:11; Start 03/06/18 at 07:30; Stop 03/06/18 at 07:30; Status DC Potassium Chloride (Klor-Con) 20 meq [id number] PO Last administered on at 09:27; Start 03/06/18 at 08:00 Risperidone (RisperDAL) 1 mg BID PO Last administered on 03/07/18at 20:07; Start 03/05/18 at 21:15 Rivaroxaban (Xarelto) 20 mg HS PO Last administered on 03/07/18at 20:06; Start 03/05/18 at 21:00 Topiramate (Topamax) 25 mg HS PO Last administered on 03/07/18at 20:06; Start 03/05/18 at 21:15 Trazodone HCl (Desyrel) 150 mg PRN QHS PRN PO INSOMNIA; Start 03/05/18 at 21: 15 Trazodone HCl (Desyrel) 100 mg QHS PO Last administered on 03/07/18at 20:07; Start 03/05/18 at 21:15 Phenyleph/Shark Oil/Min Oil/Petrol (Preparation H) 1 marleni PRN Q4HRS PRN RC RECTAL PAIN; Start 03/05/18 at 21:00 Gabapentin (Neurontin) 300 mg HS PO Last administered on 03/07/18at 20:14; Start 03/05/18 at 21:00 Acetaminophen (Tylenol) 650 mg PRN Q6HRS PRN PO MILD PAIN / TEMP Last administered on 03/06/18at 17:30; Start 03/05/18 at 21:15 Pharmacy Consult (C.diff Med Screen By Rx) 1 each 1X ONCE MC ; Start 03/06/18 at 02:00; Stop 03/06/18 at 02:01; Status DC Influenza Virus Vaccine (Afluria Trivalent 7148-1035 Syringe) 0.5 ml ONCE ONCE VAX IM ; Start 03/06/18 at 09:00; Stop 03/06/18 at 11:25; Status DC Famotidine (Pepcid) 20 mg BID PO Last administered on 03/07/18at 20:06; Start 03/06/18 at 21:00 Methylprednisolone Acetate (DEPO-Medrol 40MG VIAL) 40 mg 1X ONCE IM Last administered on 03/07/18at 16:00; Start 03/07/18 at 16:30; Stop 03/07/18 at 16 :31; Status DC Bupivacaine HCl (Sensorcaine Mpf 0.25%) 10 ml 1X ONCE IJ Last administered on 03/07/18at 16:00; Start 03/07/18 at 16:30; Stop 03/07/18 at 16:31; Status DC Fluconazole (Diflucan) 100 mg QODAY PO Last administered on 03/07/18at 17:55; Start 03/07/18 at 18:00; Stop 03/14/18 at 17:59 Nystatin (Mycostatin) 1 marleni BID TP Last administered on 03/07/18at 20:05; Start 03/07/18 at 21:00 Triamcinolone Acetonide (Kenalog) 1 marleni BID TP Last administered on 03/07/18at 20:05; Start 03/07/18 at 21:00 Active Scripts Active Reported Trazodone Hcl 150 Mg Tablet 1 Tab PO PRN QHS PRN Trazodone Hcl 150 Mg Tablet 1 Tab PO QHS Topamax (Topiramate) 25 Mg Tablet 1 Tab PO HS Risperdal (Risperidone) 1 Mg Tablet 1 Tab PO BID Preparation H (Elizabeth Valentinel) 1 Each Med..pad 1 Each RC PRN Q4HRS PRN Potassium Chloride 20 Meq Tablet.er 20 Meq PO DAILY Oxcarbazepine 300 Mg Tablet 2 Tab PO BID Biofreeze (Menthol) 118 Ml Gel..ml. 1 Each TP PRN Q6HRS PRN Loperamide (Loperamide Hcl) 2 Mg Capsule 2 Mg PO PRN Q4HRS PRN Artificial Tears Eye Drops (Dextran 70/Hypromellose) 15 Ml Drops 2 Drop EACHEYE PRN Q4HRS PRN Probiotic (Lactobacillus Acidophilus) 1 Each Capsule 1 Each PO BID Hydroxyzine Hcl 50 Mg Tablet 50 Mg PO PRN BID PRN Hydrocodone-Apap 5-325 (Hydrocodone Bit/Acetaminophen) 1 Each Tablet 1 Tab PO PRN Q4HRS PRN Miconazole Nitrate 130 Gm Aero.powd 1 Applic TP BID Latanoprost 2.5 Ml Drops 1 Drop OU HS Hydrocortisone 453.6 Gm Cream..g. 1 Marleni TP BID Apply to facial rash topically every day and mine shifter for skin protectant NITROGLYCERIN SubLingual (Nitroglycerin) 0.4 Mg Tab.subl 0.4 Mg SL PRN Q5MIN PRN Melatonin 3 Mg Tablet 5 Mg PO QHS PRN Zofran Odt (Ondansetron) 4 Mg Tab.rapdis 1 Tab SL PRN Q6HRS PRN Xarelto (Rivaroxaban) 20 Mg Tablet 20 Mg PO QHS Senokot (Sennosides) 8.6 Mg Tablet 8.6 Mg PO DAILY Potassium Chloride 20 Meq Tablet.er 20 Meq PO DAILY Protonix (Pantoprazole Sodium) 20 Mg Tablet.dr 2 Tab PO BID Metoprolol Tartrate 25 Mg Tablet 0.5 Tab PO DAILY Lorazepam 0.5 Mg Tablet 1 Tab PO Q6HRS PRN Levothyroxine Sodium 50 Mcg Tablet 1 Tab PO DAILY Lamotrigine 100 Mg Tablet 1 Tab PO BID Zaditor (Ketotifen Fumarate) 5 Ml Drops 1 Drop EACHEYE TID Gabapentin 100 Mg Capsule 100 Mg PO DAILY Gabapentin 300 Mg Capsule 300 Mg PO QHS Furosemide 40 Mg Tablet 40 Mg PO BID Duoneb 0.5-3(2.5) Mg/3 Ml (Albuterol/Ipratropium) 3 Ml Ampul.neb 3 Ml NEB QIDPRN PRN Voltaren (Diclofenac Sodium) 100 Gm Gel..gram. 1 Gm TP BID PRN Cyclobenzaprine Hcl 10 Mg Tablet 1 Tab PO TID PRN Cranberry (Cranberry Extract) 425 Mg Capsule 425 Mg PO TID Cholestyramine Light Packet (Cholestyramine/Aspartame) 4 Gm Powd.pack 4 Gm PO BID Artificial Tears (Polyvinyl Alcohol) 15 Ml Drops 2 Drop OU HS Acetaminophen 325 Mg Tablet 650 Mg PO Q6HRS Vitals/I & O Vital Sign - Last 24 Hours 03/07/18 03/07/18 03/07/18 03/07/18 11:00 15:00 19:00 20:15 Temp 97.7 97.9 96.6 97.7 97.9 96.6 Pulse 57 52 65 Resp 20 20 18 B/P (MAP) 134/50 (78) 128/47 (74) 134/76 (95) Pulse Ox 96 96 100 O2 Delivery Room Air Room Air Room Air Room Air 03/07/18 03/08/18 03/08/18 23:00 03:00 07:00 Temp 97.7 96.7 97.7 97.7 96.7 97.7 Pulse 60 60 57 Resp 18 18 18 B/P (MAP) 103/60 (74) 134/68 (90) 124/56 (78) Pulse Ox 96 96 O2 Delivery Room Air Room Air Room Air Intake and Output 03/07/18 03/07/18 03/08/18 15:00 23:00 07:00 Intake Total 760 ml 360 ml Output Total 1750 ml 2425 ml Balance 760 ml -1390 ml -2425 ml MARCUS MCLEOD MD Mar 08, 2018 10:15
[2018-03-08 11:00] VITALS: BP 108/39
[2018-03-08] MEDS: LORazepam 0.5 MG TABLET PO PRN ×2 (11:15→19:55)
--- NOTE | 2018-03-08 14:40 | PDOC2 ---
GI CONSULT Reason For Consult: Recurrent bouts of diarrhea HPI: HPI: 67 y/o female admitted from [facility] a few days ago for issues w/ diarrhea. 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 Received empiric vanco which was discontinued when C Diff testing here was negative. Other records note recent atbx use. Has h/o C Diff but also chronic diarrhea thought in the past to be improved w/ Questran, though today she says "that didn't work" and she hasn't been taking it. Varying reports of number of stools from pt to staff. She says 25 mushy stools on Monday and Monday, then less Monday and Monday, and 4 today. Colonoscopy 10/14/11 (by Dr. Yusuf for diarrhea): ileocolonic anastomosis, normal terminal ileum, normal colonic mucosa, internal hemorrhoids. No path available re: random biopsies. EGD 10/24/11 (by Dr. Yusuf for hematemesis): normal esophagus, large amount of bile in the stomach, normal gastric mucosa, normal small bowel mucosa. She also had another EGD ~2 weeks later (by Dr. Bailon) that was unremarkable. EGD 11/12/17 (by Dr. Arvizu for dysphagia): healed esophagitis (baseline grade indeterminate), normal stomach, normal duodenum. Esophagus empirically dilated to 48Fr. Dysphagia likely related to reflux esophagitis. S/p cholecystectomy, sphincter of Oddi spasm/post-ERCP pancreatitis, colon resection (?obstructions). H/o GERD. Tolerates dysphagia diet w/ think liquids. On Pepcid BID and Xarelto. PMH: PMH: HTN, CHF, A Fib, asthma/COPD, DVT, GERD, C Diff, gastroparesis, post-ERCP pancreatitis, SOD, DM, hypothyroidism, DVT, PE, MRSA, chronic pain, chronic vaginitis, ?tardive dyskinesia, bipolar/schizoaffective disorder, cholecystectomy, appendectomy, ileocolonic resection (SBO), ileal conduit/ urostomy, bilateral knee replacements, bilateral shoulder replacements, IVC filter, thyroidectomy, attempted Port-a-Cath placement w/ iatrogenic hemothorax requiring right thoracotomy FH: Family History: CAD, Hypertension Social History: ALCOHOL: none ROS: GEN: Denies fevers, chills, sweats HEENT: Denies blurred vision, sore throat CV: Denies chest pain RESP: Denies shortness of air, cough GI: Per HPI : Denies hematuria, dysuria ENDO: Denies weight changes NEURO: Denies confusion, dizziness MSK: Denies weakness, joint pain/swelling SKIN: Denies jaundice, pruritus Vitals: Vitals: Vital Signs Date Time Temp Pulse Resp B/P (MAP) Pulse Ox O2 Delivery O2 Flow Rate FiO2 03/08/18 11:07 18 Room Air 03/08/18 11:00 96.8 61 108/39 (62) 98 96.8 Labs: Labs: WET PREP Final YEAST PRESENT TRICHOMONAS NONE SEEN CLUE CELLS NONE SEEN ALTERED JACOB ALTERED JACOB PRESENT SUGGESTIVE OF BACTERIAL VAGINOSIS WBCS FEW SQUAMOUS EPS MANY Allergies: Coded Allergies: Sulfa (Sulfonamide Antibiotics) (Verified Allergy, Intermediate, 11/15/17) butorphanol (Verified Allergy, Intermediate, 11/15/17) cephalexin (Verified Allergy, Intermediate, rash, 11/15/17) duloxetine (Verified Allergy, Intermediate, 11/15/17) hydromorphone (Verified Allergy, Intermediate, 11/15/17) metoclopramide (Verified Allergy, Intermediate, 11/12/17) minocycline (Verified Allergy, Intermediate, 11/12/17) moxifloxacin (Verified Allergy, Intermediate, 11/12/17) I S O L A T I O N *CONTACT* (Verified Allergy, Unknown, 11/14/17) mrsa Medications: Current Medications Medications (Trade) Dose Ordered Sig/Sarah Route PRN Reason Start Time Stop Time Status Last Admin Dose Admin Methylprednisolone Acetate (DEPO-Medrol 40MG VIAL) 40 mg 1X ONCE IM 03/07/18 16:30 03/07/18 16:31 DC 03/07/18 16:00 Bupivacaine HCl (Sensorcaine Mpf 0.25%) 10 ml 1X ONCE IJ 03/07/18 16:30 03/07/18 16:31 DC 03/07/18 16:00 Fluconazole (Diflucan) 100 mg QODAY PO 03/07/18 18:00 03/14/18 17:59 03/07/18 17:55 Nystatin (Mycostatin) 1 esther BID TP 03/07/18 21:00 03/08/18 10:13 Triamcinolone Acetonide (Kenalog) 1 esther BID TP 03/07/18 21:00 03/08/18 10:13 Imaging: Imaging: Reviewed from past. PE: GEN: NAD HEENT: Atraumatic, PERRL LUNGS: CTAB HEART: RRR ABD: soft, non-specific chronic diffuse tenderness, +urostomy EXTREMITY: No edema SKIN: No rashes, no jaundice NEURO/PSYCH: A & O 3, lip-smacking A/P: A/P: Diarrhea -chronic issue, ?previously better w/ Questran -h/o C Diff - vanco stopped, ID following GERD, gastroparesis, dysphagia S/p ileocolonic resection S/p cholecystectomy, SOD spam/post-ERCP pancreatitis -- Observe for now, hopefully can get accurate count of stools - encouraged her to report to staff. Consider restarting vanco (?or Questran) YIMI BAEZA Mar 08, 2018 14:39
[2018-03-08 15:00] VITALS: BP 113/48
[2018-03-08 15:22] LABS: BASO % 1 % (0-3); EOS # 0.2 x10^3/uL (0.0-0.7); EOS % 5 % (0-3); HEMATOCRIT 36.5 % (36.0-47.0); HEMOGLOBIN 12.5 g/dL (12.0-15.5); LYMPH # 1.8 x10^3/uL (1.0-4.8); LYMPH % 36 % (24-48); MEAN CORPUSCULAR HEMOGLOBIN 29 pg (25-35); MEAN CORPUSCULAR HGB CONC 34 g/dL (31-37); MEAN CORPUSCULAR VOLUME 86 fL (79-100); MONO # 0.3 x10^3/uL (0.0-1.1); MONO % 7 % (0-9); NEUT # 2.6 x10^3uL (1.8-7.7); NEUT % 52 % (31-73); PLATELET COUNT 184 x10^3/uL (140-400); RED BLOOD COUNT 4.27 x10^6/uL (3.50-5.40); RED CELL DISTRIBUTION WIDTH 15.2 % (11.5-14.5)
[2018-03-08 15:39] LABS: ALBUMIN 3.5 g/dL (3.4-5.0); ALBUMIN/GLOBULIN RATIO 0.9 (1.0-1.7); CALCIUM 9.2 mg/dL (8.5-10.1); CREATININE 0.7 mg/dL (0.6-1.0); GFR 83.2; POTASSIUM 4.8 mmol/L (3.5-5.1); TOTAL BILIRUBIN 0.1 mg/dL (0.2-1.0); TOTAL PROTEIN 7.5 g/dL (6.4-8.2)
[2018-03-08 19:00] VITALS: BP 187/85
[2018-03-08] MEDS: traZODone 50 MG TABLET. PO SCH (19:54)
[2018-03-08] MEDS: TOPIRAMATE 25 MG TABLET. PO SCH (19:54)
[2018-03-08] MEDS: GABAPENTIN 300 MG CAPSULE. PO SCH (19:54)
[2018-03-08] MEDS: RIVAROXABAN 10 MG TABLET. PO SCH (19:54)
[2018-03-08] MEDS: LATANOPROST 0.005% OPHTH SOLUTION 2.5ML BOTTLE. OU SCH (19:57)
[2018-03-08] MEDS: POLYVINYL ALCOHOL 1.4% OPHTH SOLUTION 15ML BOTTLE. OU SCH (19:58)
[2018-03-08] MEDS: ACETAMINOPHEN 325 MG TABLET. PO PRN (22:01)
[2018-03-08 23:07] VITALS: BP 141/55
[2018-03-09] MEDS: HYDROcodone/APAP 5/325MG 1 TAB TABLET PO PRN ×3 (01:07→10:57)
[2018-03-09] MEDS: DICLOFENAC SODIUM 1% TOPICAL GEL 100GM TUBE. TP PRN ×2 (01:12→08:58)
--- NOTE | 2018-03-09 01:30 | PN ---
DATE: 03/08/2018 SUBJECTIVE: The patient is resting slightly propped up in bed, in no apparent distress. The pain in the right knee is much improved after Dr. Sierra has injected her right knee. She had 3 loose bowel movements according to nursing staff. The patient herself stated that she had 6 bowel movements. She currently denied any fever, chills or rigors. Her stool for C. diff toxins by PCR was negative. She has had a vaginal wet prep and it did show that she has yeast present and also features suggestive of bacterial vaginosis. PHYSICAL EXAMINATION: GENERAL: When I examined her, she looked pale, not jaundice, cyanosis, or thyromegaly. No jugular venous distension. No lower limb edema. VITAL SIGNS: Her heart rate was 57, blood pressure was 124/56, temperature was 97.7, respiratory rate was 18 and oxygen saturation was 96% on room air. HEAD, EYES, EARS, NOSE AND THROAT: Showed normocephalic, atraumatic. NECK: Supple. HEART: Showed normal first and second heart sounds. No gallop, rub or murmur. CHEST: Clear to auscultation. No crepitation or rhonchi. ABDOMEN: Distended, soft, nontender. No guarding or rigidity. No organomegaly. All hernial orifices intact. Bowel sounds normal. She has urostomy in the right lower quadrant. NEUROLOGIC: She is awake, alert, responding appropriately. All cranial nerves intact. She moves upper extremities to much good extent than lower extremities. She is mostly bedbound, chair bound. She has severe osteoarthritis of both knee joints, right more than left for which she has had steroid injection. ASSESSMENT: The patient was admitted with possible Clostridium difficile colitis; however, repeat labs here showed no evidence of Clostridium difficile toxins. 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 PLAN: My plan is to arrange for her to have a CT scan of the abdomen and pelvis without IV contrast and consult yarn spinner. She was seen by Dr. Tapia for her chronic vaginitis for which he started her on fluconazole. I asked the patient to allow us to draw blood once at least to check her kidney function, particularly potassium. JOVANNA RAE MD DR: VERNELL/christina JOB#: [id number] / [id number]
[2018-03-09 03:11] VITALS: BP 164/90
[2018-03-09] MEDS: hydrOXYzine PAMOATE 25 MG CAPSULE PO PRN (03:30)
[2018-03-09] MEDS: LEVOTHYROXINE 50 MCG TABLET PO SCH (06:45)
[2018-03-09 07:00] VITALS: BP 114/58
[2018-03-09] MEDS: POTASSIUM CHLORIDE 20 MEQ TABLET.ER. PO SCH (08:53)
[2018-03-09] MEDS: LACTOBACILLUS RHAMNOSUS GG 1 CAPSULE. PO SCH (08:53)
[2018-03-09] MEDS: LORazepam 0.5 MG TABLET PO PRN (08:53)
[2018-03-09] MEDS: risperiDONE 1 MG TABLET. PO SCH (08:54)
[2018-03-09] MEDS: GABAPENTIN 100 MG CAPSULE. PO SCH (08:54)
[2018-03-09] MEDS: lamoTRIgine 100 MG TABLET. PO SCH (08:54)
[2018-03-09] MEDS: OXcarbazepine 300 MG TABLET PO SCH (08:54)
[2018-03-09] MEDS: FLUCONAZOLE 100 MG TABLET. PO SCH (08:54)
[2018-03-09] MEDS: METOPROLOL TART IMMED RELEASE 25 MG TABLET. PO SCH (08:55)
[2018-03-09] MEDS: HYDROCORTISONE 1% TOPICAL CREAM 30GM TUBE. TP SCH (09:00)
[2018-03-09] MEDS: MICONAZOLE NITRATE 2% TOPICAL CREAM 28GM TUBE. TP SCH (09:00)
[2018-03-09] MEDS: KETOTIFEN FUMARATE 0.025% OPHTH SOLUTION BOTTLE. OU SCH (09:00)
[2018-03-09] MEDS: TRIAMCINOLONE ACETONIDE 0.1% TOPICAL CREAM 15GM TUBE. TP SCH (09:00)
[2018-03-09] MEDS: NYSTATIN 100,000 UNIT/GM TOPICAL CREAM 15GM TUBE. TP SCH (09:00)
[2018-03-09] MEDS: CHOLESTYRAMINE/ASPARTAME 4 GM PACKET PO SCH (09:00)
--- NOTE | 2018-03-09 09:21 | PDOC ---
PROGRESS NOTES Subjective Subjective She wants her left knee injected today. Objective Objective Vital Signs Date Time Temp Pulse Resp B/P (MAP) Pulse Ox O2 Delivery O2 Flow Rate FiO2 03/09/18 08:55 64 114/58 03/09/18 07:45 18 Room Air 03/09/18 07:00 97.6 98 97.6 Intake and Output 03/09/18 07:00 Intake Total 1560 ml Output Total 3450 ml Balance -1890 ml Intake Oral 1560 ml Output Urine Total 3450 ml # Bowel Movements 3 Physical Exam Physical Exam She is supine in bed and seems to be comfortable and seh did transfer from bed to chair with physical therapy providing her minimal assistance. Plan Plan of Care At her request,I have injected her left knee joint under aseptic skin technique with 2 ml of ).25% marcaine solution mixed with 1 ml of depro medrol 40 mg/1ml solution and she tolerated the procedure satisfactorily without any side effects. Comment Review of Relevant I have reviewed the following items braxton (where applicable) has been applied. Labs Laboratory Tests Test 03/08/18 15:15 White Blood Count 5.0 x10^3/uL (4.0-11.0) Red Blood Count 4.27 x10^6/uL (3.50-5.40) Hemoglobin 12.5 g/dL (12.0-15.5) Hematocrit 36.5 % (36.0-47.0) Mean Corpuscular Volume 86 fL (79-100) Mean Corpuscular Hemoglobin 29 pg (25-35) Mean Corpuscular Hemoglobin Concent 34 g/dL (31-37) Red Cell Distribution Width 15.2 % (11.5-14.5) Platelet Count 184 x10^3/uL (140-400) Neutrophils (%) (Auto) 52 % (31-73) Lymphocytes (%) (Auto) 36 % (24-48) Monocytes (%) (Auto) 7 % (0-9) Eosinophils (%) (Auto) 5 % (0-3) Basophils (%) (Auto) 1 % (0-3) Neutrophils # (Auto) 2.6 x10^3uL (1.8-7.7) Lymphocytes # (Auto) 1.8 x10^3/uL (1.0-4.8) Monocytes # (Auto) 0.3 x10^3/uL (0.0-1.1) Eosinophils # (Auto) 0.2 x10^3/uL (0.0-0.7) Basophils # (Auto) 0.0 x10^3/uL (0.0-0.2) Sodium Level 135 mmol/L (136-145) Potassium Level 4.8 mmol/L (3.5-5.1) Chloride Level 103 mmol/L (98-107) Carbon Dioxide Level 23 mmol/L (21-32) Anion Gap 9 (6-14) Blood Urea Nitrogen 19 mg/dL (7-20) Creatinine 0.7 mg/dL (0.6-1.0) Estimated GFR (Cockcroft-Gault) 83.2 BUN/Creatinine Ratio 27 (6-20) Glucose Level 106 mg/dL (70-99) Calcium Level 9.2 mg/dL (8.5-10.1) Total Bilirubin 0.1 mg/dL (0.2-1.0) Aspartate Amino Transf (AST/SGOT) 13 U/L (15-37) Alanine Aminotransferase (ALT/SGPT) 19 U/L (14-59) Alkaline Phosphatase 123 U/L (46-116) Total Protein 7.5 g/dL (6.4-8.2) Albumin 3.5 g/dL (3.4-5.0) Albumin/Globulin Ratio 0.9 (1.0-1.7) Laboratory Tests Test 03/08/18 15:15 White Blood Count 5.0 x10^3/uL (4.0-11.0) Red Blood Count 4.27 x10^6/uL (3.50-5.40) Hemoglobin 12.5 g/dL (12.0-15.5) Hematocrit 36.5 % (36.0-47.0) Mean Corpuscular Volume 86 fL (79-100) Mean Corpuscular Hemoglobin 29 pg (25-35) Mean Corpuscular Hemoglobin Concent 34 g/dL (31-37) Red Cell Distribution Width 15.2 % (11.5-14.5) Platelet Count 184 x10^3/uL (140-400) Neutrophils (%) (Auto) 52 % (31-73) Lymphocytes (%) (Auto) 36 % (24-48) Monocytes (%) (Auto) 7 % (0-9) Eosinophils (%) (Auto) 5 % (0-3) Basophils (%) (Auto) 1 % (0-3) Neutrophils # (Auto) 2.6 x10^3uL (1.8-7.7) Lymphocytes # (Auto) 1.8 x10^3/uL (1.0-4.8) Monocytes # (Auto) 0.3 x10^3/uL (0.0-1.1) Eosinophils # (Auto) 0.2 x10^3/uL (0.0-0.7) Basophils # (Auto) 0.0 x10^3/uL (0.0-0.2) Sodium Level 135 mmol/L (136-145) Potassium Level 4.8 mmol/L (3.5-5.1) Chloride Level 103 mmol/L (98-107) Carbon Dioxide Level 23 mmol/L (21-32) Anion Gap 9 (6-14) Blood Urea Nitrogen 19 mg/dL (7-20) Creatinine 0.7 mg/dL (0.6-1.0) Estimated GFR (Cockcroft-Gault) 83.2 BUN/Creatinine Ratio 27 (6-20) Glucose Level 106 mg/dL (70-99) Calcium Level 9.2 mg/dL (8.5-10.1) Total Bilirubin 0.1 mg/dL (0.2-1.0) Aspartate Amino Transf (AST/SGOT) 13 U/L (15-37) Alanine Aminotransferase (ALT/SGPT) 19 U/L (14-59) Alkaline Phosphatase 123 U/L (46-116) Total Protein 7.5 g/dL (6.4-8.2) Albumin 3.5 g/dL (3.4-5.0) Albumin/Globulin Ratio 0.9 (1.0-1.7) Microbiology 03/07/18 Wet Prep - Final, Complete Medications Current Medications Dextrose/Sodium Chloride 1,000 ml @ 125 mls/hr Q8H IV ; Start 03/05/18 at 18: 00; Stop 03/05/18 at 20:06; Status DC Vancomycin HCl (Vancomycin Oral Solution) 125 mg [id number] PO Last administered on 03/07/18at 20:14; Start 03/05/18 at 21:00; Stop 03/08/18 at 07:11; Status DC Potassium Chloride/Dextrose/ Sod Cl 1,000 ml @ 125 mls/hr Q8H IV Last administered on 03/08/18at 12:53; Start 03/05/18 at 21:00; Stop 03/08/18 at 16 :14; Status DC Acetaminophen (Tylenol) 650 mg Q6HRS PO ; Start 03/06/18 at 00:00; Stop at 00:00; Status DC Cholestyramine Resin (Questran Light) 4 gm BID PO Last administered on at 19:55; Start 03/05/18 at 21:00 Cyclobenzaprine HCl (Flexeril) 10 mg PRN TID PRN PO MUSCLE SPASMS Last administered on 03/06/18at 22:23; Start 03/05/18 at 20:15 Diclofenac Sodium (Voltaren) 1 marleni PRN BID PRN TP knee pain Last administered on 03/09/18at 08:58; Start 03/05/18 at 20:15 Gabapentin (Neurontin) 100 mg DAILY PO Last administered on 03/09/18at 08:54; Start 03/06/18 at 09:00 Acetaminophen/ Hydrocodone Bitart (Lortab 5/325) 1 tab PRN Q4HRS PRN PO MODERATE TO SEVERE PAIN Last administered on 03/09/18at 06:45; Start 03/05/18 at 20:15 Albuterol/ Ipratropium (Duoneb) 3 ml QIDPRN PRN NEB SHORTNESS OF BREATH; Start 03/05/18 at 20:15 Lorazepam (Ativan) 0.5 mg PRN Q6HRS PRN PO ANXIETY Last administered on at 08:53; Start 03/05/18 at 20:15 Metoprolol Tartrate (Lopressor) 12.5 mg DAILY PO Last administered on at 08:55; Start 03/06/18 at 09:00 Nitroglycerin (Nitrostat) 0.4 mg PRN Q5MIN PRN SL CHEST PAIN; Start 03/05/18 at 20:15 Ondansetron HCl (Zofran Odt) 4 mg PRN Q6HRS PRN PO NAUSEA/VOMITING; Start at 20:15 Artificial Tears (Artificial Tears) 2 drop HS OU Last administered on at 19:58; Start 03/05/18 at 21:00 Non-Formulary Medication (Cranberry Extract (Cranberry)) 425 mg TID PO ; Start 03/05/18 at 21:00; Status UNV Non-Formulary Medication (Dextran 70/ Hypromellose (Artificial Tears Eye Drops) ) 2 drop PRN Q4HRS PRN EACHEYE DRY EYE; Start 03/05/18 at 20:15; Status UNV Gabapentin (Neurontin) 300 mg TID PO ; Start 03/05/18 at 21:00; Stop 03/05/18 at 21:00; Status DC Hydrocortisone (Cortaid) 1 marleni BID TP Last administered on 03/09/18at 09:00; Start 03/05/18 at 20:30 Hydroxyzine Pamoate (Vistaril) 50 mg PRN Q12HRS PRN PO ITCHING Last administered on 03/09/18at 03:30; Start 03/05/18 at 20:30 Ketotifen Fumarate (Zaditor) 1 drop BID OU Last administered on 03/09/18at 09: 00; Start 03/05/18 at 21:00 Lactobacillus Rhamnosus (Culturelle) 1 cap BID PO Last administered on at 08:53; Start 03/05/18 at 21:00 Lamotrigine (LaMICtal) 100 mg BID PO Last administered on 03/09/18at 08:54; Start 03/05/18 at 21:15 Latanoprost (Xalatan) 1 drop QHS OU Last administered on 03/08/18at 19:57; Start 03/05/18 at 21:00 Levothyroxine Sodium (Synthroid) 50 mcg DAILY06 PO Last administered on at 06:45; Start 03/06/18 at 06:00 Loperamide HCl (Imodium) 2 mg PRN Q4HRS PRN PO DIARRHEA; Start 03/05/18 at 21: 00; Stop 03/06/18 at 12:38; Status DC Non-Formulary Medication (Melatonin ) 5 mg QHS PRN PO insomnia; Start at 20:15; Status UNV Multi-Ingredient Ointment (Analgesic [place]) 1 marleni PRN QID PRN TP MUSCLE PAIN; Start 03/05/18 at 21:00 Miconazole Nitrate (Monistat-Derm) 1 marleni BID TP Last administered on at 09:00; Start 03/06/18 at 09:00 Oxcarbazepine (Trileptal) 600 mg BID PO Last administered on 03/09/18at 08:54; Start 03/05/18 at 21:00 Pantoprazole Sodium (Protonix) 40 mg DAILYAC PO Last administered on at 06:11; Start 03/06/18 at 07:30; Stop 03/06/18 at 07:30; Status DC Potassium Chloride (Klor-Con) 20 meq [id number] PO Last administered on at 08:53; Start 03/06/18 at 08:00 Risperidone (RisperDAL) 1 mg BID PO Last administered on 03/09/18at 08:54; Start 03/05/18 at 21:15 Rivaroxaban (Xarelto) 20 mg HS PO Last administered on 03/08/18at 19:54; Start 03/05/18 at 21:00 Topiramate (Topamax) 25 mg HS PO Last administered on 03/08/18at 19:54; Start 03/05/18 at 21:15 Trazodone HCl (Desyrel) 150 mg PRN QHS PRN PO INSOMNIA; Start 03/05/18 at 21: 15 Trazodone HCl (Desyrel) 100 mg QHS PO Last administered on 03/08/18at 19:54; Start 03/05/18 at 21:15 Phenyleph/Shark Oil/Min Oil/Petrol (Preparation H) 1 marleni PRN Q4HRS PRN RC RECTAL PAIN; Start 03/05/18 at 21:00 Gabapentin (Neurontin) 300 mg HS PO Last administered on 03/08/18at 19:54; Start 03/05/18 at 21:00 Acetaminophen (Tylenol) 650 mg PRN Q6HRS PRN PO MILD PAIN / TEMP Last administered on 03/08/18at 22:01; Start 03/05/18 at 21:15 Pharmacy Consult (C.diff Med Screen By Rx) 1 each 1X ONCE MC ; Start 03/06/18 at 02:00; Stop 03/06/18 at 02:01; Status DC Influenza Virus Vaccine (Afluria Trivalent Syringe) 0.5 ml ONCE ONCE VAX IM ; Start 03/06/18 at 09:00; Stop 03/06/18 at 09:01; Status Cancel Famotidine (Pepcid) 20 mg BID PO Last administered on 03/08/18at 19:55; Start 03/06/18 at 21:00 Methylprednisolone Acetate (DEPO-Medrol 40MG VIAL) 40 mg 1X ONCE IM Last administered on 03/07/18at 16:00; Start 03/07/18 at 16:30; Stop 03/07/18 at 16 :31; Status DC Bupivacaine HCl (Sensorcaine Mpf 0.25%) 10 ml 1X ONCE IJ Last administered on 03/07/18at 16:00; Start 03/07/18 at 16:30; Stop 03/07/18 at 16:31; Status DC Fluconazole (Diflucan) 100 mg QODAY PO Last administered on 03/09/18at 08:54; Start 03/07/18 at 18:00; Stop 03/14/18 at 17:59 Nystatin (Mycostatin) 1 marleni BID TP Last administered on 03/09/18at 09:00; Start 03/07/18 at 21:00 Triamcinolone Acetonide (Kenalog) 1 marleni BID TP Last administered on 03/09/18at 09:00; Start 03/07/18 at 21:00 Influenza Virus Vaccine (Afluria Trivalent Syringe) 0.5 ml ONCE ONCE VAX IM Last administered on 03/08/18at 16:24; Start 03/08/18 at 16:30; Stop 03/08/18 at 16:31; Status DC Active Scripts Active Reported Trazodone Hcl 150 Mg Tablet 1 Tab PO PRN QHS PRN Trazodone Hcl 150 Mg Tablet 1 Tab PO QHS Topamax (Topiramate) 25 Mg Tablet 1 Tab PO HS Risperdal (Risperidone) 1 Mg Tablet 1 Tab PO BID Preparation H (Elizabeth Rivas) 1 Each Med..pad 1 Each RC PRN Q4HRS PRN Potassium Chloride 20 Meq Tablet.er 20 Meq PO DAILY Oxcarbazepine 300 Mg Tablet 2 Tab PO BID Biofreeze (Menthol) 118 Ml Gel..ml. 1 Each TP PRN Q6HRS PRN Loperamide (Loperamide Hcl) 2 Mg Capsule 2 Mg PO PRN Q4HRS PRN Artificial Tears Eye Drops (Dextran 70/Hypromellose) 15 Ml Drops 2 Drop EACHEYE PRN Q4HRS PRN Probiotic (Lactobacillus Acidophilus) 1 Each Capsule 1 Each PO BID Hydroxyzine Hcl 50 Mg Tablet 50 Mg PO PRN BID PRN Hydrocodone-Apap 5-325 (Hydrocodone Bit/Acetaminophen) 1 Each Tablet 1 Tab PO PRN Q4HRS PRN Miconazole Nitrate 130 Gm Aero.powd 1 Applic TP BID Latanoprost 2.5 Ml Drops 1 Drop OU HS Hydrocortisone 453.6 Gm Cream..g. 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 NITROGLYCERIN SubLingual (Nitroglycerin) 0.4 Mg Tab.subl 0.4 Mg SL PRN Q5MIN PRN Melatonin 3 Mg Tablet 5 Mg PO QHS PRN Zofran Odt (Ondansetron) 4 Mg Tab.rapdis 1 Tab SL PRN Q6HRS PRN Xarelto (Rivaroxaban) 20 Mg Tablet 20 Mg PO QHS Senokot (Sennosides) 8.6 Mg Tablet 8.6 Mg PO DAILY Potassium Chloride 20 Meq Tablet.er 20 Meq PO DAILY Protonix (Pantoprazole Sodium) 20 Mg Tablet.dr 2 Tab PO BID Metoprolol Tartrate 25 Mg Tablet 0.5 Tab PO DAILY Lorazepam 0.5 Mg Tablet 1 Tab PO Q6HRS PRN Levothyroxine Sodium 50 Mcg Tablet 1 Tab PO DAILY Lamotrigine 100 Mg Tablet 1 Tab PO BID Zaditor (Ketotifen Fumarate) 5 Ml Drops 1 Drop EACHEYE TID Gabapentin 100 Mg Capsule 100 Mg PO DAILY Gabapentin 300 Mg Capsule 300 Mg PO QHS Furosemide 40 Mg Tablet 40 Mg PO BID Duoneb 0.5-3(2.5) Mg/3 Ml (Albuterol/Ipratropium) 3 Ml Ampul.neb 3 Ml NEB QIDPRN PRN Voltaren (Diclofenac Sodium) 100 Gm Gel..gram. 1 Gm TP BID PRN Cyclobenzaprine Hcl 10 Mg Tablet 1 Tab PO TID PRN Cranberry (Cranberry Extract) 425 Mg Capsule 425 Mg PO TID Cholestyramine Light Packet (Cholestyramine/Aspartame) 4 Gm Powd.pack 4 Gm PO BID Artificial Tears (Polyvinyl Alcohol) 15 Ml Drops 2 Drop OU HS Acetaminophen 325 Mg Tablet 650 Mg PO Q6HRS Vitals/I & O Vital Sign - Last 24 Hours 03/08/18 03/08/18 03/08/18 03/08/18 10:07 11:00 15:00 15:18 Temp 96.8 97.7 96.8 97.7 Pulse 61 70 Resp 2 18 18 18 B/P (MAP) 108/39 (62) 113/48 (69) Pulse Ox 98 94 O2 Delivery Room Air Room Air Room Air Room Air 03/08/18 03/08/18 03/08/18 03/08/18 19:00 19:55 20:00 23:07 Temp 98.1 97.7 98.1 97.7 Pulse 74 67 Resp 20 20 B/P (MAP) 187/85 (119) 141/55 (83) Pulse Ox 100 96 O2 Delivery Room Air Room Air Room Air Room Air 03/09/18 03/09/18 03/09/18 03/09/18 01:07 03:11 06:45 07:00 Temp 97.7 97.6 97.7 97.6 Pulse 64 64 Resp 20 18 B/P (MAP) 164/90 (114) 114/58 (76) Pulse Ox 100 98 O2 Delivery Room Air Room Air Room Air Room Air 03/09/18 03/09/18 07:45 08:55 Pulse 64 Resp 18 B/P (MAP) 114/58 O2 Delivery Room Air Intake and Output 03/08/18 03/08/18 03/09/18 15:00 23:00 07:00 Intake Total 540 ml 1020 ml Output Total 1450 ml 2000 ml Balance 540 ml -430 ml -2000 ml MARCUS MCLEOD MD Mar 09, 2018 09:21
[2018-03-09] MEDS: FAMOTIDINE 20 MG TABLET. PO SCH (09:28)
[2018-03-09] MEDS ORDERED: BUPIVACAINE MPF 0.25% 10 ML VIAL. IJ ONE (09:30)
[2018-03-09] MEDS ORDERED: methylPREDNISolone ACETATE 40 MG/ML VIAL. INJ ONE (09:30)
[2018-03-09] MEDS: CYCLOBENZAPRINE 10 MG TABLET. PO PRN (10:56)
[2018-03-09 11:00] VITALS: BP 112/65
--- NOTE | 2018-03-09 13:59 | PDOC ---
G I PROGRESS NOTE Subjective 4 stools charted for yesterday. Thinks maybe going home. Dislikes the questran , but seems to indicate helpful when she does. Objective Had to remind myself has had most of colon removed with ileosigmoid anastomosis. Physical Exam Lungs clear. RRR Abdomen soft, not tender nor distended. Review of Relevant I have reviewed the following items braxton (where applicable) has been applied. Labs Laboratory Tests Test 03/08/18 15:15 White Blood Count 5.0 x10^3/uL (4.0-11.0) Red Blood Count 4.27 x10^6/uL (3.50-5.40) Hemoglobin 12.5 g/dL (12.0-15.5) Hematocrit 36.5 % (36.0-47.0) Mean Corpuscular Volume 86 fL (79-100) Mean Corpuscular Hemoglobin 29 pg (25-35) Mean Corpuscular Hemoglobin Concent 34 g/dL (31-37) Red Cell Distribution Width 15.2 % (11.5-14.5) Platelet Count 184 x10^3/uL (140-400) Neutrophils (%) (Auto) 52 % (31-73) Lymphocytes (%) (Auto) 36 % (24-48) Monocytes (%) (Auto) 7 % (0-9) Eosinophils (%) (Auto) 5 % (0-3) Basophils (%) (Auto) 1 % (0-3) Neutrophils # (Auto) 2.6 x10^3uL (1.8-7.7) Lymphocytes # (Auto) 1.8 x10^3/uL (1.0-4.8) Monocytes # (Auto) 0.3 x10^3/uL (0.0-1.1) Eosinophils # (Auto) 0.2 x10^3/uL (0.0-0.7) Basophils # (Auto) 0.0 x10^3/uL (0.0-0.2) Sodium Level 135 mmol/L (136-145) Potassium Level 4.8 mmol/L (3.5-5.1) Chloride Level 103 mmol/L (98-107) Carbon Dioxide Level 23 mmol/L (21-32) Anion Gap 9 (6-14) Blood Urea Nitrogen 19 mg/dL (7-20) Creatinine 0.7 mg/dL (0.6-1.0) Estimated GFR (Cockcroft-Gault) 83.2 BUN/Creatinine Ratio 27 (6-20) Glucose Level 106 mg/dL (70-99) Calcium Level 9.2 mg/dL (8.5-10.1) Total Bilirubin 0.1 mg/dL (0.2-1.0) Aspartate Amino Transf (AST/SGOT) 13 U/L (15-37) Alanine Aminotransferase (ALT/SGPT) 19 U/L (14-59) Alkaline Phosphatase 123 U/L (46-116) Total Protein 7.5 g/dL (6.4-8.2) Albumin 3.5 g/dL (3.4-5.0) Albumin/Globulin Ratio 0.9 (1.0-1.7) Laboratory Tests Test 03/08/18 15:15 White Blood Count 5.0 x10^3/uL (4.0-11.0) Red Blood Count 4.27 x10^6/uL (3.50-5.40) Hemoglobin 12.5 g/dL (12.0-15.5) Hematocrit 36.5 % (36.0-47.0) Mean Corpuscular Volume 86 fL (79-100) Mean Corpuscular Hemoglobin 29 pg (25-35) Mean Corpuscular Hemoglobin Concent 34 g/dL (31-37) Red Cell Distribution Width 15.2 % (11.5-14.5) Platelet Count 184 x10^3/uL (140-400) Neutrophils (%) (Auto) 52 % (31-73) Lymphocytes (%) (Auto) 36 % (24-48) Monocytes (%) (Auto) 7 % (0-9) Eosinophils (%) (Auto) 5 % (0-3) Basophils (%) (Auto) 1 % (0-3) Neutrophils # (Auto) 2.6 x10^3uL (1.8-7.7) Lymphocytes # (Auto) 1.8 x10^3/uL (1.0-4.8) Monocytes # (Auto) 0.3 x10^3/uL (0.0-1.1) Eosinophils # (Auto) 0.2 x10^3/uL (0.0-0.7) Basophils # (Auto) 0.0 x10^3/uL (0.0-0.2) Sodium Level 135 mmol/L (136-145) Potassium Level 4.8 mmol/L (3.5-5.1) Chloride Level 103 mmol/L (98-107) Carbon Dioxide Level 23 mmol/L (21-32) Anion Gap 9 (6-14) Blood Urea Nitrogen 19 mg/dL (7-20) Creatinine 0.7 mg/dL (0.6-1.0) Estimated GFR (Cockcroft-Gault) 83.2 BUN/Creatinine Ratio 27 (6-20) Glucose Level 106 mg/dL (70-99) Calcium Level 9.2 mg/dL (8.5-10.1) Total Bilirubin 0.1 mg/dL (0.2-1.0) Aspartate Amino Transf (AST/SGOT) 13 U/L (15-37) Alanine Aminotransferase (ALT/SGPT) 19 U/L (14-59) Alkaline Phosphatase 123 U/L (46-116) Total Protein 7.5 g/dL (6.4-8.2) Albumin 3.5 g/dL (3.4-5.0) Albumin/Globulin Ratio 0.9 (1.0-1.7) Microbiology 03/08/18 Fecal Leukocyte Stain - Final, Complete 03/07/18 Wet Prep - Final, Complete Vitals/I & O Vital Sign - Last 24 Hours 03/08/18 03/08/18 03/08/18 03/08/18 15:00 15:18 19:00 19:55 Temp 97.7 98.1 97.7 98.1 Pulse 70 74 Resp 18 18 20 B/P (MAP) 113/48 (69) 187/85 (119) Pulse Ox 94 100 O2 Delivery Room Air Room Air Room Air Room Air 03/08/18 03/08/18 03/09/18 03/09/18 20:00 23:07 01:07 03:11 Temp 97.7 97.7 97.7 97.7 Pulse 67 64 Resp 20 20 B/P (MAP) 141/55 (83) 164/90 (114) Pulse Ox 96 100 O2 Delivery Room Air Room Air Room Air Room Air 03/09/18 03/09/18 03/09/18 03/09/18 06:45 07:00 08:55 10:57 Temp 97.6 97.6 Pulse 64 64 Resp 18 18 B/P (MAP) 114/58 (76) 114/58 Pulse Ox 98 O2 Delivery Room Air Room Air Room Air 03/09/18 03/09/18 11:00 11:57 Temp 97.3 97.3 Pulse 65 Resp 18 18 B/P (MAP) 112/65 (81) Pulse Ox 97 O2 Delivery Room Air Room Air Intake and Output 03/08/18 03/08/18 03/09/18 15:00 23:00 07:00 Intake Total 540 ml 1020 ml Output Total 1450 ml 2000 ml Balance 540 ml -430 ml -2000 ml Assessment "Diarrhea". If no more than 4 daily, that's not bad for not much colon. Plan of Care Note Would give Questran 4g bid. Alternative would be Welchol, but large tablet and may not be able to swallow. No objections to discharge at your discretion. RICCO JACOBS MD Mar 09, 2018 13:59
--- NOTE | 2018-03-09 19:06 | DS ---
DATE OF DISCHARGE: 03/09/2018 HOSPITAL COURSE: The patient is 67-year-old female patient, a resident at [facility] who was admitted with recurrent bouts of loose bowel movement. Her stool was positive for C. diff and she was also positive for VRE. We did start her on oral vancomycin. She was then was seen in consultation by the Infectious Disease specialist. She also has recurrent vaginitis, was seen in consultation by the varnisher plasticoater and was diagnosed with chronic vaginitis with prep obtained, was treated with Diflucan 100 mg every other day for 1 week and Mycolog cream t.i.d. and we repeated his C. diff because of some question about whether she is really positive and in fact her C. diff toxins came back negative. Her nasal screen for MRSA by PCR was positive. She did complain of severe pain in her both knee joints because of advanced osteoarthritis and she was seen by Dr. Sierra who injected her right knee and the patient basically had no further episodes of diarrhea. Her hypokalemia was corrected. Her potassium has risen from 3-4.8 and she is feeling generally much improved and a decision was made to discharge her back to [facility]. PHYSICAL EXAMINATION: GENERAL: When I saw her this morning, she looked well and was clearly in no apparent respiratory distress, slightly pale, no jaundice, cyanosis, or thyromegaly. No jugular venous distension. No limb edema. VITAL SIGNS: Her heart rate was 64, blood pressure was 164/90, temperature was 97.7, respiratory rate was 20, and oxygen saturation was 100% on room air. HEAD, EYES, EARS, NOSE AND THROAT: Normocephalic, atraumatic. NECK: Supple. HEART: Showed normal first and second heart sounds with no gallop, rub or murmur. CHEST: Clear to auscultation. No crepitation or rhonchi. ABDOMEN: Distended, soft with ileostomy in the right lower quadrant. There is no tenderness. No guarding or rigidity. No organomegaly. Hernial orifice intact. Bowel sounds normal. NEUROLOGIC: She is awake, alert, responding appropriately. Cranial nerves intact. She moves upper extremities to much good extent than lower extremities as she is mostly bedbound, chair bound. Her intake was 1500, output was 3400. LABORATORY DATA: Her lab work this morning showed a white cell count of 5000, hemoglobin 12.5, hematocrit 36.5, MCV 86 and platelet count of 184,000. Her chemistry showed a serum sodium 135, potassium 4.8, chloride 103, bicarbonate 23, anion gap of 9, BUN 19, creatinine 0.7, estimated GFR was 83 mL per minute. Her glucose 106, calcium was 9.2. Total bilirubin, AST, ALT, alkaline phosphatase were normal. Total protein was 7.5, albumin was 3.5. DISCHARGE MEDICATIONS: She was discharged back to [facility] to continue on the following medications: Tylenol 650 mg every 6 hours as needed, cholestyramine 4 gram powder packet twice a day, cranberry extract 425 mg 3 times a day, cyclobenzaprine 10 mg 3 times a day, artificial tears 2 drops to both eyes every 4 hours, diclofenac sodium 100 gram gel applied 1 gram topically twice a day to both knees, furosemide 40 mg p.o. b.i.d., gabapentin 300 mg at bedtime, gabapentin 100 mg daily, hydrocodone/APAP 5/325 one tablet every 4 hours, hydrocortisone cream applied topically twice a day, hydroxyzine 50 mg p.o. b.i.d., ipratropium bromide, albuterol sulfate 4 times a day, Zaditor 1 drop to both eyes 3 times a day, lactobacillus acidophilus 1 twice a day, lamotrigine 100 mg twice a day, latanoprost 1 drop to both eyes at bedtime, levothyroxine sodium 50 mcg once a day, loperamide 2 mg every 4 hours as needed, lorazepam 0.5 mg every 6 hours, melatonin 5 mg at bedtime, Biofreeze applied topically every 6 hours as needed, metoprolol tartrate half a tablet twice a day, ondansetron 4 mg every 6 hours, oxcarbazepine 600 mg twice a day and Protonix 40 mg twice a day, polyvinyl alcohol 2 drops to both eyes at bedtime, potassium chloride 20 mEq daily, rivaroxaban 20 mg daily, risperidone 1 mg twice a day, senna 1 tablet once a day, topiramate for Topamax 25 mg once a day, trazodone 150 mg at bedtime. FINAL DISCHARGE DIAGNOSES: Recurrent episode of diarrhea. Her C. diff was negative. No salmonella or Shigella. 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 She has chronic vaginitis, severe osteoarthritis of both knee joints, hypothyroidism, hypertension. JOVANNA RAE MD DR: VERNELL/christina JOB#: [id number] / [id number]
== END 2018-03-09 13:50 | DRG 392 ==
LOC: 5 NORTH 17:06
PROVIDERS: ADMIT Internal Medicine; ATTEND Internal Medicine
PROC: 3E0U33Z Introduction of Anti-inflammatory into Joints, Percutaneous Approach (ICD-10-PCS; principal; 2018-03-02)
PROC: 3E0U3BZ Introduction of Anesthetic Agent into Joints, Percutaneous Approach (ICD-10-PCS; 2018-03-02)
DX: R19.7 Diarrhea, unspecified (principal); I48.2 Chronic atrial fibrillation; E66.01 Morbid (severe) obesity due to excess calories; E11.42 Type 2 diabetes mellitus with diabetic polyneuropathy; I11.0 Hypertensive heart disease with heart failure; I50.9 Heart failure, unspecified; J44.9 Chronic obstructive pulmonary disease, unspecified; K31.84 Gastroparesis; E11.43 Type 2 diabetes mellitus with diabetic autonomic (poly)neuropathy; F25.9 Schizoaffective disorder, unspecified; E89.0 Postprocedural hypothyroidism; E78.5 Hyperlipidemia, unspecified; M81.0 Age-related osteoporosis without current pathological fracture; F32.9 Major depressive disorder, single episode, unspecified; F41.9 Anxiety disorder, unspecified; G89.4 Chronic pain syndrome; M79.7 Fibromyalgia; E86.0 Dehydration; B37.3 Candidiasis of vulva and vagina; N76.1 Subacute and chronic vaginitis; B95.62 Methicillin resistant Staphylococcus aureus infection as the cause of diseases classified elsewhere; M17.0 Bilateral primary osteoarthritis of knee; E87.6 Hypokalemia; Z96.653 Presence of artificial knee joint, bilateral; Z96.611 Presence of right artificial shoulder joint; Z96.612 Presence of left artificial shoulder joint; B96.89 Other specified bacterial agents as the cause of diseases classified elsewhere; F60.9 Personality disorder, unspecified; K21.9 Gastro-esophageal reflux disease without esophagitis; M06.9 Rheumatoid arthritis, unspecified; R13.10 Dysphagia, unspecified; Z90.6 Acquired absence of other parts of urinary tract; Z86.19 Personal history of other infectious and parasitic diseases; Z93.6 Other artificial openings of urinary tract status; Z86.718 Personal history of other venous thrombosis and embolism; Z79.01 Long term (current) use of anticoagulants; Z90.49 Acquired absence of other specified parts of digestive tract; Z90.710 Acquired absence of both cervix and uterus; Z82.49 Family history of ischemic heart disease and other diseases of the circulatory system; Z88.1 Allergy status to other antibiotic agents; Z88.0 Allergy status to penicillin; Z88.2 Allergy status to sulfonamides; Z88.8 Allergy status to other drugs, medicaments and biological substances; Z87.442 Personal history of urinary calculi; Z85.51 Personal history of malignant neoplasm of bladder
CPT/HCPCS: 36415; 80053; 85025; 87045; 87205; 87324; 87641; 90471; 90756; J1030; J3490; Q0111; Q0177; Q2035

== ENCOUNTER → 2018-07-03 | Outpatient (CLI) | payer MEDICARE, OTHER ==
[2018-04-30 10:55] VITALS: BP 125/64
[~2018-07-03] MED LIST changes: +DEXT15DR5 EACHEYE; -GABA-586 PO; +GABA300C18 PO; +HYDR-2761 PO; +HYDR50TA PO; +LACT1CAP6 PO; +LOPE2CAP PO; +MENT118G TP; +METO10TA81 PO; +OXCA300T19 PO; +RISP1TAB43 PO; +TOPI25TA52 PO; +TRAZ150T49 PO; +WITC1MED RC; +hydrocortisone cream TP
--- NOTE | 2018-07-03 10:53 | RAD ---
EXAM: Lumbar spine MRI without contrast. HISTORY: Left leg pain. TECHNIQUE: Multiplanar, multisequence magnetic resonance imaging of the lumbar spine was performed without contrast. COMPARISON: CT dated 11/16/2017. FINDINGS: There is lumbar lordosis and scoliosis. There is grade 1 anterolisthesis of L5 on S1, measuring 4 mm. There are associated pars interarticularis defects at this level. There is mild retrolisthesis of L2 on L3 and L3 on L4. There is degenerative endplate remodeling with disc space narrowing and osteophytosis primarily along the right aspect of L3-L4 and left aspect of L4-L5 and L5-S1. This corresponds with the levels of maximum scoliotic curvature. There are multiple endplate Schmorl's nodes. There is no suspicious osseous lesion or acute or subacute fracture. The conus terminates at L1. The left L5 transverse process appears to articulate with the underlying sacrum, a normal variant. 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 At L1-L2, there is a left lateral predominant disc bulge and endplate osteophytosis. There is mild left foraminal stenosis. At L2-L3, there is a right lateral predominant disc bulge and endplate osteophytosis. There is mild to moderate right foraminal stenosis. At L3-L4, there is a right lateral predominant disc bulge and endplate osteophytosis. There is mild to moderate right foraminal stenosis. At L4-L5, there is a left lateral predominant disc bulge and endplate remodeling. There is minimal left foraminal stenosis. At L5-S1, there is a left lateral predominant disc bulge and endplate osteophytosis. There is mild left greater than right facet arthropathy. There is grade 1 anterolisthesis with bilateral pars defects. There is minimal right and mild to moderate left foraminal stenosis. IMPRESSION: 1. Multilevel degenerative change throughout the lumbar spine, described in detail above. This results in foraminal stenosis at the aforementioned levels. 2. Grade 1 anterolisthesis with associated pars defects at L5-S1. 3. Mild scoliosis. Electronically signed by: Elly Wilcox MD (07/03/2018 10:50 AM) [id number]
--- NOTE | 2018-07-03 13:09 | RAD ---
MRI STUDY OF THE RIGHT LOWER LEG WITHOUT CONTRAST INDICATIONS:: Right lower leg pain anteriorly distal to the right knee. History of surgery of the right knee. TECHNIQUE: Noncontrast MRI sequences of the right lower leg excluding the distal one third of the tibia and fibula were performed in all 3 planes. COMPARISON: None available. FINDINGS: There is paramagnetic susceptibility artifact of the proximal aspect of the tibial metaphysis secondary to metallic surgical hardware. This does obscure this area of the tibia. There are degenerative cystic changes of the medial tibial plateau and lateral tibial plateau and deep to the tibial spines. There is severe degenerative osteoarthritis with loss of articular cartilage of the medial and lateral tibiofemoral joint compartments and the patellofemoral joint compartment. There is a horizontal cleavage tear of the lateral meniscus. No abnormal marrow infiltrative process or fracture is evident elsewhere. No medial tibial stress syndrome is evident. No muscle edema is evident. There is mild posterior subcutaneous soft tissue edema. No fluid collection or abscess is seen. No soft tissue mass is evident. IMPRESSION: Postsurgical changes of the proximal right tibia. Severe tricompartmental primary degenerative osteoarthritis of the right knee. Horizontal cleavage tear of the lateral meniscus. Dedicated MRI study of the right knee may be helpful for further evaluation. Electronically signed by: Josue Still MD (07/03/2018 1:06 PM) [id number]
== END | disposition home or self-care (01) ==
LOC: MRI 13:31
PROVIDERS: ATTEND Internal Medicine
DX: S83.282A Other tear of lateral meniscus, current injury, left knee, initial encounter (principal); M47.26 Other spondylosis with radiculopathy, lumbar region; M48.061 Spinal stenosis, lumbar region without neurogenic claudication; M41.86 Other forms of scoliosis, lumbar region; M17.11 Unilateral primary osteoarthritis, right knee; Z98.890 Other specified postprocedural states; X58.XXXA Exposure to other specified factors, initial encounter; Y93.89 Activity, other specified; Y92.89 Other specified places as the place of occurrence of the external cause; Y99.8 Other external cause status
CPT/HCPCS: 72148; 73718

== ENCOUNTER 2018-10-19 13:17 | Outpatient (CLI) | payer MEDICARE, OTHER ==
[~2018-10-19] VITALS: Ht 162.6 cm; Wt 104.3 kg
[2018-10-19 13:52] VITALS: BP 107/69
[2018-10-19] MEDS ORDERED: LIDOCAINE WITH 8.4% SOD BICARB 3 ML DISP.SYRIN. ONE ×2 (13:52→14:44)
[2018-10-19] MEDS ORDERED: IOHEXOL 240 MG/ML 50ML VIAL. ONE (14:28)
[2018-10-19] MEDS ORDERED: CYCLOBENZAPRINE 10 MG TABLET. PO PRN (14:30)
[2018-10-19] MEDS ORDERED: LORazepam 1 MG TABLET PO PRN (14:30)
[2018-10-19] MEDS ORDERED: CEFEPIME HCL IV Push 1 GM VIAL. IVP SCH (14:30)
[2018-10-19] MEDS ORDERED: LIDOCAINE 1%/EPI 1:100,000 20 ML VIAL. ONE (14:53)
[2018-10-19] MEDS ORDERED: IOHEXOL 240 MG/ML 50ML VIAL. IJ ONE (15:00)
[2018-10-19] MEDS ORDERED: LIDOCAINE WITH 8.4% SOD BICARB 3 ML DISP.SYRIN. INJ ONE (15:00)
[2018-10-19] MEDS ORDERED: LIDOCAINE 1%/EPI 1:100,000 20 ML VIAL. INJ ONE (15:00)
[2018-10-19] MEDS ORDERED: HEPARIN PF 500 UNIT/5 ML DISP.SYRIN. IV ONE ×2 (15:06→15:15)
--- NOTE | 2018-10-19 15:35 | NUR ---
Discharge Note: JAMES OLIVA Discharge instructions and discharge home medications reviewed with Patient and Sergey RENDON at [facility] and a copy given. All questions have been answered and understanding verbalized. The following instructions and handouts were given: Post powerline placement. Discontinued lines and drains: No lines to dc. Patient discharged to [facility] via [facility].
--- NOTE | 2018-10-19 15:50 | PDOC ---
BRIEF OPERATIVE NOTE Pre-Op Diagnosis infection Post-Op Diagnosis same Procedure Performed Bilateral upper extremity venograms and tunnelled central line placement Surgeon Roman Anesthesia Type: Local Findings Bilateral Axillary vein occlusions, right supraclavicular IJ occlusion. A tunnelled central line was placed via the right retroclavicular IJ Complications No immediate GERMAN DOWLING MD October 19, 2018 15:50
[2018-10-19] MEDS ORDERED: PANTOPRAZOLE 40 MG TABLET.DR. PO SCH (16:30)
--- NOTE | 2018-10-19 17:32 | RAD ---
Procedure: Ultrasound-guided venous access x4, and tunnel Central line placement with fluoroscopy. Clinical Indication: 68-year-old with infection requiring systemic antibiotic therapy. Sedation: Local anesthesia only Antibiotics: Antibiotic was administered intravenously within 1 hour of the procedure start time. Exposure: Kerma-Area Product: 7 Gycm2 Sterility: All elements of maximal sterile barrier technique including the use of a cap, mask, sterile gown, sterile gloves, large sterile sheet, appropriate hand hygiene, and 2% chlorhexidine for cutaneous antisepsis (or acceptable alternative antiseptic per current guidelines) were followed for this procedure. If ultrasound guidance was utilized, sterile ultrasound techniques were followed including use of a sterile probe cover. Consent: The procedure was explained in its entirety to the patient or the patients designated sales representative girls' apparel by a member of the treatment team, including a discussion of the risks, benefits and commonly accepted alternatives to the procedure, as well as the expected consequences of no therapy whatsoever. Discussion of the risks included, but was not limited to, those that are most frequent and those that are rare but possibly severe or life-threatening, as well as the possibility of unforeseen complications. Technique and Findings: Following informed consent, the patient was prepped and draped in usual sterile fashion. Ultrasound interrogation of the right arm was performed, demonstrating small but patent paired brachial veins, a diminutive but patent cephalic vein, and absence of the basilic vein. 1% lidocaine was used to achieve local anesthesia. Under ultrasound guidance, a 21-gauge micropuncture needle was used to gain access to the first of the brachial veins. A hardcopy ultrasound image was recorded. This vein probably went into spasm and was no longer suitable for access. Once again under ultrasound guidance, needle access was obtained into the second of the brachial veins. Hardcopy ultrasound image was again recorded. The needle was exchanged over wire for a 4 [place] sheath, however the wire would not advance centrally. Contrast venography was then performed demonstrating axillary vein occlusion with tortuous collaterals. This access was abandoned. Under ultrasound guidance, a 21-gauge micropuncture was used to gain access to the cephalic vein. Hardcopy ultrasound image was recorded. Once again however the wire would not pass. This access was abandoned, and the left arm was then prepped and draped in usual sterile fashion. Ultrasound interrogation of the left arm revealed patency of a basilic vein and a distal brachial vein. 1% lidocaine was used to achieve local anesthesia. Under ultrasound guidance, a 21-gauge micropuncture was used to gain access to the left basilic vein. A Hardcopy ultrasound image was recorded. The needle was exchanged over wire, however once again the wire would not pass. Contrast venography was performed demonstrating occlusion of the high basilic vein, and mid brachial vein. Access was abandoned and hemostasis was achieved with manual compression. The right chest and neck was then prepped and draped in usual sterile fashion. Ultrasound of the right neck revealed patency of the retroclavicular internal jugular vein with occlusion of the supraclavicular internal jugular vein. 1% lidocaine was used to achieve local anesthesia. Under ultrasound guidance, a 21-gauge micropuncture needle was used to gain access to this portion of the internal jugular vein. A Hardcopy ultrasound image was recorded. The needle was exchanged over wire for a peel-away sheath. The skin over the right chest wall was then anesthetized with 1% lidocaine plus epinephrine. A small dermatotomy was made. A dual-lumen power injectable tunneled catheter was then tunneled subcutaneously towards the neck dermatotomy then deployed through the peel-away sheath under fluoroscopic guidance such that the distal tip resided at the cavoatrial junction. Both lumens were assessed and found to flush and aspirate with ease. The PICC line was then sutured to the skin, flushed, and capped. Dermabond was used to close the right neck dermatotomy. Complications: No immediate Impression: 1. Bilateral upper extremity venograms demonstrating axillary occlusion of the right and basilic and brachial venous occlusion on the left. Patient is a poor candidate for upper extremity PICC line placement in the future. 2. Successful placement of a tunneled central venous line via the right internal jugular vein as described.
[2018-10-19] MEDS ORDERED: PREGABALIN 50 MG CAPSULE PO SCH (21:00)
[2018-10-19] MEDS ORDERED: DIVALPROEX EXTENDED RELEASE 500 MG TAB.ER.24H. PO SCH (21:00)
[2018-10-19] MEDS ORDERED: TOPIRAMATE 25 MG TABLET. PO SCH (21:00)
[2018-10-19] MEDS ORDERED: DICLOFENAC SODIUM 1% TOPICAL GEL 100GM TUBE. TP SCH (21:00)
[2018-10-19] MEDS ORDERED: PREGABALIN 25 MG CAPSULE PO SCH (21:00)
[2018-10-19] MEDS ORDERED: LACTOBACILLUS RHAMNOSUS GG 1 CAPSULE. PO SCH (21:00)
[2018-10-19] MEDS ORDERED: rOPINIRole 1 MG TABLET. PO SCH (21:00)
[2018-10-20] MEDS ORDERED: LEVOTHYROXINE 50 MCG TABLET PO SCH (06:00)
[2018-10-20] MEDS ORDERED: metOLazone 2.5 MG TABLET PO SCH (09:00)
[2018-10-20] MEDS ORDERED: METOPROLOL TART IMMED RELEASE 25 MG TABLET. PO SCH (09:00)
== END 2018-10-19 15:45 | disposition home or self-care (01) ==
LOC: INTRAD 13:17
PROVIDERS: ATTEND Internal Medicine
DX: T85.79XA Infection and inflammatory reaction due to other internal prosthetic devices, implants and grafts, initial encounter (principal); X58.XXXA Exposure to other specified factors, initial encounter; Y93.89 Activity, other specified; Y92.89 Other specified places as the place of occurrence of the external cause; Y99.8 Other external cause status
CPT/HCPCS: 36558; 75820; 76937; 77001; C1751; C1892; J3490; Q9966